=== PATIENT | female | born 1975 | race Caucasian/White ===

== ENCOUNTER → 2016-07-24 | Outpatient (CLI) | payer OTHER ==
[~2016-07-24] MED LIST: ALBU1AER9 INH; ASCO10003 PO; ATV/1 PO; CHOL1000 PO; CHOL100010 PO; CLB/200 PO; DICY10CA12 PO; DPKSR/500 PO; EFF75 PO; HYDR4TAB78 PO; IMT100 PO; LACT1CAP6 PO; LORA10CA2 PO; MAGN400T6 PO; METH10TA4 PO; MORP15TA PO; OXYC-57 PO; OXYC7.5T65 PO; PARO1TAB29 PO; PREG100C PO; PREG150C PO; PROM25TA16 PO; PRT/40 PO; SUMA6KIT2 INJ; TOPI200T14 PO; VNTHFA/IN INH; ZNF/4 PO; ZNT/150 PO; ZOLP10TA6 PO
--- NOTE | 2016-07-24 12:19 | DIAGNOSTIC IMAGING REPORT ---
THYROID ULTRASOUND CLINICAL HISTORY: Abnormal thyroid exam. Thyromegaly. COMPARISON STUDY: None. TECHNIQUE: Sonography of the thyroid gland was performed. FINDINGS: The right thyroid lobe measures 5.3 x 1.8 x 1.9 cm and the left measures 5.8 x 1.8 x 1.6 cm. The gland is mildly heterogeneous. The gland is slightly enlarged. A few hypoechoic thyroid nodules are noted, the largest of which is a 1.1 x 1.1 x 0.7 cm hypoechoic nodule within the lower pole of the left thyroid lobe. IMPRESSION: 1. Mildly enlarged, slightly heterogeneous thyroid gland. 2. Several thyroid nodules, the largest of which is a 1.1 cm left lobe nodule. None of these nodules meet criteria for biopsy. A follow-up thyroid ultrasound in one year is recommended. Electronically signed by: Torres Mayorga M.D. 07/24/2016 12:18 PM Dictated Date/Time: 07/24/2016 12:15 PM
== END | disposition home or self-care (01) ==
LOC: C.ULTR 11:37
PROVIDERS: ATTEND Internal Medicine
DX: R94.6 Abnormal results of thyroid function studies (principal); E04.1 Nontoxic single thyroid nodule

== ENCOUNTER 2016-08-08 01:58 | Emergency (ER) | payer OTHER ==
[~2016-08-08] VITALS: Ht 167.6 cm; Wt 91.0 kg
[~2016-08-08 01:58] MED LIST changes: -CHOL1000 PO; -DICY10CA12 PO; -HYDR4TAB78 PO; -LACT1CAP6 PO; -MORP15TA PO; -OXYC7.5T65 PO; -PARO1TAB29 PO; -PREG150C PO; -PRT/40 PO; -VNTHFA/IN INH
[2016-08-08 02:02] VITALS: TEMP 36.5; Ht 167.6 cm; Wt 91.0 kg
[2016-08-08] MEDS ORDERED: METOCLOPRAMIDE HCL INJ 5 MG/ML 2 ML VIAL IV STA (02:18)
[2016-08-08] MEDS ORDERED: KETOROLAC TROMETHAMINE 30 MG/ML VIAL IV STA (02:18)
[2016-08-08] MEDS ORDERED: SODIUM CHLORIDE 0.9% 1000ML 1,000 ML IV STA (02:18)
[2016-08-08] MEDS ORDERED: DiphenhydrAMINE HCL 50 MG/ML VIAL IV STA ×2 (02:18→04:03)
[2016-08-08] MEDS ORDERED: CHOL1000 PO (02:30)
[2016-08-08] MEDS ORDERED: VNTHFA/IN INH (02:30)
[2016-08-08] MEDS ORDERED: DICYCLOMINE HCL 10 MG/ML 2 ML AMP IM ONE (02:30)
[2016-08-08] MEDS ORDERED: LACT1CAP6 PO (02:32)
[2016-08-08] MEDS ORDERED: DICY10CA12 PO (02:32)
[2016-08-08] MEDS ORDERED: PRT/40 PO (02:32)
[2016-08-08] MEDS ORDERED: PARO1TAB29 PO (02:32)
[2016-08-08] MEDS ORDERED: OXYC7.5T65 PO (02:33)
[2016-08-08 02:38] LABS: BASO % 0.7 %; BASO ABS # 0.05 K/uL (0-0.2); COMPLETE YES; EOS % 3.3 %; HEMATOCRIT 35.7 % (37-47); IG% 0.1 %; LYMPH % 43.2 %; LYMPH ABS # 3.26 K/uL (1.2-3.4); MEAN CELL VOLUME 93.7 fL (80-100); MEAN CORPUSCULAR HGB CONC 34.2 g/dl (32-36); MEAN PLATELET VOLUME 9.2 fL (7.4-10.4); MONO % 4.4 %; NEUT % 48.3 %; PLATELET COUNT 280 K/uL (130-400); RED BLOOD COUNT 3.81 M/uL (4.2-5.4); WHITE BLOOD COUNT 7.55 K/uL (4.8-10.8)
--- NOTE | 2016-08-08 02:38 | EMERGENCY ROOM VISIT NOTE ---
ED Visit Note First contact with patient: 02:08 I have seen and examined this patient with Meaghan Varner and generally agree with the treatment plan as discussed. Problem List Medical Problems: (1) Acute urinary tract infection Status: Resolved (2) Anxiety disorder Status: Chronic (3) Cervical arthrodesis Status: Chronic (4) Chronic migraine Status: Chronic (5) Chronic neck and back pain Status: Chronic (6) Chronic pain syndrome Status: Chronic (7) Clostridium difficile colitis Status: Resolved (8) Community acquired pneumonia Status: Resolved (9) Depression Status: Chronic (10) DJD (degenerative joint disease) Status: Chronic (11) Fibromyalgia Status: Chronic (12) GERD (gastroesophageal reflux disease) Status: Chronic (13) IBS (irritable bowel syndrome) Status: Chronic (14) Migraine Status: Chronic (15) Osteoarthritis Status: Chronic (16) Spinal stenosis Status: Chronic Surgical Problems: (1) History of cervical spinal surgery Permanent Comment: ACDF C3 through C6 fusion Status: Resolved (2) History of section Status: Resolved (3) History of rhinoplasty Status: Resolved Current/Historical Medications Scheduled Ascorbic Acid (Vitamin C), 1,000 MG PO DAILY Cholecalciferol (Vitamin D3), 1,000 UNIT PO DAILY Dicyclomine Hcl (Dicyclomine Hcl), 10 MG PO BID Lactobacillus (Probiotic), 1 CAP PO DAILY Loratadine (Claritin), 10 MG PO DAILY Magnesium Oxide (Mag-Ox), 400 MG PO DAILY Methylphenidate (Ritalin), 10 MG PO BID Pantoprazole (Pantoprazole Sodium), 40 MG PO DAILY Paroxetine (Paxil), 40 MG PO DAILY Pregabalin (Lyrica), 100 MG PO TID Ranitidine Hcl (Zantac), 150 MG PO BID Topiramate (Topamax), 200 MG PO BID Scheduled PRN Albuterol Hfa (Ventolin Hfa), 2 PUFFS INH Q4 PRN for Wheezing Celecoxib (CeleBREX), 200 MG PO BID PRN for Pain Oxycodone/Acetaminophen 7.5MG/325MG (Percocet 7.5MG/325MG), 1 TAB PO Q6 PRN for Pain Promethazine HCl (Promethazine HCl), 25 MG PO Q6H PRN for NAUSEA Sumatriptan Succinate (Imitrex), 100 MG PO UD PRN for Migraine Sumatriptan Succinate (Imitrex Statdose), 1 DOSE INJ for Pain Tizanidine (Tizanidine HCl), 4 MG PO TID PRN for MUSCLE SPASMS Allergies Coded Allergies: No Known Allergies (Unverified , 08/08/16) Vital Signs Date Time Temp Pulse Resp B/P Pulse Ox O2 Delivery O2 Flow Rate FiO2 08/08/16 02:02 36.5 96 20 120/77 98 Room Air Laboratory Results Test 08/08/16 02:25 Medications Administered Medications (Trade) Dose Ordered Sig/Tabitha Route Start Time Stop Time Status Last Admin Dose Admin Dicyclomine HCl (Bentyl Inj) 20 mg NOW ONCE IM 08/08/16 02:30 08/08/16 02:31 DC 08/08/16 02:30 20 MG Metoclopramide HCl (Reglan Inj) 10 mg NOW STAT IV 08/08/16 02:18 08/08/16 02:20 DC 08/08/16 02:36 10 MG Diphenhydramine HCl (Benadryl Inj) 12.5 mg NOW STAT IV 08/08/16 02:18 08/08/16 02:21 DC 08/08/16 02:36 12.5 MG Ketorolac Tromethamine 30 mg 30 mg NOW STAT IV 08/08/16 02:18 08/08/16 02:21 DC 08/08/16 02:35 30 MG Sodium Chloride (Nss 1000ml) 1,000 ml @ 999 mls/hr Q1H1M STAT IV 08/08/16 02:18 08/08/16 03:18 08/08/16 02:36 999 MLS/HR Departure Information Referrals Pete Cueto M.D. (PCP) Patient Instructions My [facility]
[2016-08-08 03:01] LABS: ALT/SGPT 14 U/L (12-78); AST/SGOT 8 U/L (15-37); BLOOD UREA NITROGEN 15 mg/dl (7-18); BUN/CREATININE RATIO 14.5 (10-20); CALCIUM 7.9 mg/dl (8.5-10.1); CARBON DIOXIDE 20 mmol/L (21-32); CHLORIDE 113 mmol/L (98-107); GLUCOSE 125 mg/dl (70-99); POTASSIUM 3.3 mmol/L (3.5-5.1); SODIUM 146 mmol/L (136-145)
[2016-08-08] MEDS ORDERED: CALCIUM CARBONATE 500 MG CHEWABLE PO STA (03:05)
[2016-08-08] MEDS ORDERED: POTASSIUM CHLORIDE 10 MEQ TABCR PO STA (03:05)
[2016-08-08 03:06] LABS: ALKALINE PHOSPHATASE 64 U/L (45-117)
[2016-08-08] MEDS ORDERED: PROCHLORPERAZINE 5 MG/ML 2 ML VIAL IV STA (04:03)
[2016-08-08] MEDS ORDERED: HYDROmorphone INJ 2 MG/ML SYR/VIAL IV STA (04:53)
--- NOTE | 2016-08-08 04:54 | EMERGENCY ROOM VISIT NOTE ---
History First contact with patient: 02:08 Chief Complaint: OTHER COMPLAINT Stated Complaint: SEVERE MIGRAINE,CHEST PAINS,TROUBLE BREATHING,ABD History of Present Illness The patient is a 41 year old female who presents to the Emergency Room with complaints of headache, epigastric chest discomfort for the past few days. She suffers from migraines. She has fibromyalgia. She describes a headache as throbbing, ranging in severity currently 8 out of 10 throughout the temporal region summer to prior. Nothing makes her symptoms better or worse. She describes the chest pain as discomfort, 5 out of 10. It does not radiate. Patient denies vomiting, diarrhea, localized weakness, neck stiffness, sore throat, fever, chills, cold symptoms, urinary symptoms, recent illness. She is tolerating by mouth fluids and food. She has a history of migraines. She also has IBS. Review of Systems See HPI for pertinent positives & negatives. A total of 10 systems reviewed and were otherwise negative. Past Medical/Surgical History Medical Problems: (1) Acute urinary tract infection (2) Anxiety disorder (3) Cervical arthrodesis (4) Chronic migraine (5) Chronic neck and back pain (6) Chronic pain syndrome (7) Clostridium difficile colitis (8) Community acquired pneumonia (9) Depression (10) DJD (degenerative joint disease) (11) Fibromyalgia (12) GERD (gastroesophageal reflux disease) (13) IBS (irritable bowel syndrome) (14) Migraine (15) Osteoarthritis (16) Spinal stenosis Surgical Problems: (1) History of cervical spinal surgery (2) History of section (3) History of rhinoplasty Family History Diabetes mellitus FHx: cancer FHx: heart disease Hypertension Kidney disease Kidney stones Social History Smoking Status: Current Every Day Smoker Alcohol Use: none Drug Use: none Marital Status: Housing Status: lives with family Occupation Status: disabled, other Current/Historical Medications Scheduled Ascorbic Acid (Vitamin C), 1,000 MG PO DAILY Cholecalciferol (Vitamin D3), 1,000 UNIT PO DAILY Dicyclomine Hcl (Dicyclomine Hcl), 10 MG PO BID Lactobacillus (Probiotic), 1 CAP PO DAILY Loratadine (Claritin), 10 MG PO DAILY Magnesium Oxide (Mag-Ox), 400 MG PO DAILY Methylphenidate (Ritalin), 10 MG PO BID Pantoprazole (Pantoprazole Sodium), 40 MG PO DAILY Paroxetine (Paxil), 40 MG PO DAILY Pregabalin (Lyrica), 100 MG PO TID Ranitidine Hcl (Zantac), 150 MG PO BID Topiramate (Topamax), 200 MG PO BID Scheduled PRN Albuterol Hfa (Ventolin Hfa), 2 PUFFS INH Q4 PRN for Wheezing Celecoxib (CeleBREX), 200 MG PO BID PRN for Pain Oxycodone/Acetaminophen 7.5MG/325MG (Percocet 7.5MG/325MG), 1 TAB PO Q6 PRN for Pain Promethazine HCl (Promethazine HCl), 25 MG PO Q6H PRN for NAUSEA Sumatriptan Succinate (Imitrex), 100 MG PO UD PRN for Migraine Sumatriptan Succinate (Imitrex Statdose), 1 DOSE INJ for Pain Tizanidine (Tizanidine HCl), 4 MG PO TID PRN for MUSCLE SPASMS Allergies Coded Allergies: No Known Allergies (Unverified , 08/08/16) Physical Exam Vital Signs Date Time Temp Pulse Resp B/P Pulse Ox O2 Delivery O2 Flow Rate FiO2 08/08/16 04:05 70 08/08/16 03:47 Room Air 08/08/16 03:46 74 22 103/57 95 Room Air 08/08/16 03:33 Room Air 08/08/16 02:02 36.5 96 20 120/77 98 Room Air Physical Exam VITALS: Vitals are noted on the nurse's note and reviewed by myself. Vital signs stable. GENERAL: Pleasant female, in no acute distress, nondiaphoretic, well-developed well-nourished. SKIN: The skin was without rashes, erythema, edema, or bruising. There is no tenting of the skin. Capillary reflex less than 2 seconds. HEAD: Normocephalic atraumatic. EARS: External auditory canals clear, tympanic membranes pearly pace without erythema or effusion bilaterally. EYES: Pupils equal round and reactive to light and accommodation. Conjunctivae without injection, sclerae without icterus. Extraocular movements intact. NOSE: Patent, turbinates without inflammation or discharge. No sinus tenderness. MOUTH: Mucous membranes moist. Pharynx without erythema or exudate. Uvula midline. Airway patent. Tongue does not deviate. NECK: Supple without nuchal rigidity. No lymphadenopathy. No thyromegaly. Cervical spine is nontender. No JVD. HEART: Regular rate and rhythm without murmurs gallops or rubs. LUNGS: Clear to auscultation bilaterally without wheezes, rales or rhonchi. No dullness to percussion. No retractions or accessory muscle use. ABDOMEN: Positive bowel sounds x 4. Normal tympanic percussion. Soft, nontender, without masses or organomegaly. Sanches sign negative. No guarding or rebound tenderness. no CVA tenderness MUSCULOSKELETAL: No muscle atrophy, erythema, or edema noted. NEURO: Patient was alert and oriented to person place and time. Normal sensation to light and sharp touch. No focal neurological deficits. Cranial nerves II through XII grossly intact. No pronator drift. Cerebellar exam intact Medical Decision & Procedures Laboratory Results 08/08/16 02:25 Red Blood Count 3.81, Mean Corpuscular Volume 93.7, Mean Corpuscular Hemoglobin 32.0, Mean Corpuscular Hemoglobin Concent 34.2, Mean Platelet Volume 9.2, Neutrophils (%) (Auto) 48.3, Lymphocytes (%) (Auto) 43.2, Monocytes (%) (Auto) 4.4, Eosinophils (%) (Auto) 3.3, Basophils (%) (Auto) 0.7, Neutrophils # (Auto) 3.65, Lymphocytes # (Auto) 3.26, Monocytes # (Auto) 0.33, Eosinophils # (Auto) 0.25, Basophils # (Auto) 0.05 08/08/16 02:25 Test 08/08/16 02:25 08/08/16 04:35 White Blood Count 7.55 K/uL (4.8-10.8) Red Blood Count 3.81 M/uL (4.2-5.4) Hemoglobin 12.2 g/dL (12.0-16.0) Hematocrit 35.7 % (37-47) Mean Corpuscular Volume 93.7 fL (80-100) Mean Corpuscular Hemoglobin 32.0 pg (25-34) Mean Corpuscular Hemoglobin Concent 34.2 g/dl (32-36) Platelet Count 280 K/uL (130-400) Mean Platelet Volume 9.2 fL (7.4-10.4) Neutrophils (%) (Auto) 48.3 % Lymphocytes (%) (Auto) 43.2 % Monocytes (%) (Auto) 4.4 % Eosinophils (%) (Auto) 3.3 % Basophils (%) (Auto) 0.7 % Neutrophils # (Auto) 3.65 K/uL (1.4-6.5) Lymphocytes # (Auto) 3.26 K/uL (1.2-3.4) Monocytes # (Auto) 0.33 K/uL (0.11-0.59) Eosinophils # (Auto) 0.25 K/uL (0-0.5) Basophils # (Auto) 0.05 K/uL (0-0.2) RDW Standard Deviation 44.8 fL (36.4-46.3) RDW Coefficient of Variation 13.1 % (11.5-14.5) Immature Granulocyte % (Auto) 0.1 % Immature Granulocyte # (Auto) 0.01 K/uL (0.00-0.02) Anion Gap 13.0 mmol/L (3-11) Est Creatinine Clear Calc Drug Dose 82.4 ml/min Estimated GFR () 79.9 Estimated GFR (Non- 69.0 BUN/Creatinine Ratio 14.5 (10-20) Calcium Level 7.9 mg/dl (8.5-10.1) Total Bilirubin 0.2 mg/dl (0.2-1) Direct Bilirubin < 0.1 mg/dl (0-0.2) Aspartate Amino Transf (AST/SGOT) 8 U/L (15-37) Alanine Aminotransferase (ALT/SGPT) 14 U/L (12-78) Alkaline Phosphatase 64 U/L (45-117) Troponin I < 0.015 ng/ml (0-0.045) Total Protein 6.4 gm/dl (6.4-8.2) Albumin 3.3 gm/dl (3.4-5.0) Lipase 128 U/L (73-393) Bedside Troponin I 0.000 ng/ml (0-0.045) Medications Administered Medications (Trade) Dose Ordered Sig/Tabitha Route Start Time Stop Time Status Last Admin Dose Admin Dicyclomine HCl (Bentyl Inj) 20 mg NOW ONCE IM 08/08/16 02:30 08/08/16 02:31 DC 08/08/16 02:30 20 MG Metoclopramide HCl (Reglan Inj) 10 mg NOW STAT IV 3/8/17 02:18 08/08/16 02:20 DC 08/08/16 02:36 10 MG Diphenhydramine HCl (Benadryl Inj) 12.5 mg NOW STAT IV 08/08/16 02:18 08/08/16 02:21 DC 08/08/16 02:36 12.5 MG Ketorolac Tromethamine 30 mg 30 mg NOW STAT IV 08/08/16 02:18 08/08/16 02:21 DC 08/08/16 02:35 30 MG Sodium Chloride (Nss 1000ml) 1,000 ml @ 999 mls/hr Q1H1M STAT IV 08/08/16 02:18 08/08/16 03:18 DC 08/08/16 02:36 999 MLS/HR Potassium Chloride (Klor-Con M10) 20 meq NOW STAT PO 08/08/16 03:05 08/08/16 03:07 DC 08/08/16 03:48 20 MEQ Calcium Carbonate (Tums Chew Tab) 1,000 mg NOW STAT PO 08/08/16 03:05 08/08/16 03:07 DC 08/08/16 03:50 1,000 MG Prochlorperazine Edisylate (Compazine Inj) 10 mg NOW STAT IV 08/08/16 04:03 08/08/16 04:04 DC 08/08/16 04:19 10 MG Diphenhydramine HCl (Benadryl Inj) 12.5 mg NOW STAT IV 08/08/16 04:03 08/08/16 04:04 DC 08/08/16 04:19 12.5 MG ED Course Prior records/ancillary studies reviewed. Triage Nursing notes reviewed. The patient's history was concerning for headache and epigastric chest pain. Differential diagnosis: Etiologies such as acute intracranial bleed, CVA, postural headache, meningitis , encephalitis, mass or mass effect, sinusitis, infection, temporal arteritis, trigeminal neuralgia, pseudotumor cerebri, tension headache, cluster headache, carbon monoxide exposure, migraine, cardiac ischemia, aortic dissection, pulmonary embolism, pneumonia, pneumothorax, musculoskeletal, infections, pericarditis, myocarditis, esophageal rupture, gastrointestinal, as well as others were entertained. Physical examination: As above. ER treatment provided: Bentyl, Reglan, Benadryl, Toradol, IV fluids On reassessment the patient felt better. Diagnostic interpretation by me: The electrocardiogram was negative for pathologic change. Normal sinus, normal intervals, no acute ST or T wave changes. Impression normal sinus rhythm interpreted by myself The labs revealed 2 negative troponins 2 hours prior. Hypokalemia and this was replaced orally Imaging studies: Chest x-ray with no acute consolidation or pneumothorax interpreted by myself No acute cholecystitis per radiology Exam and history seem consistent with migraine. Patient was neurovascularly and neurologically intact. She is well-appearing. She felt much better after being medicated as above. She is advised to rest, stay well-hydrated and to follow-up with family care in a few days or here in the ER sooner for severe headache, fever, chills, neck sickness, abdominal pain, chest pain, worsening signs or symptoms or as needed.By the evaluation outlined above emergent etiologies such as cardiac ischemia, aortic dissection, pulmonary embolism, pneumonia, pneumothorax, infections, pericarditis, myocarditis, gastrointestinal , as well as others were deemed relatively unlikely. The pt informed about the findings as listed above. All questions were answered and pleased with the treatment. Return instructions were outlined and the patient was discharged in stable condition. Referral: The patient was referred back to primary care physician for follow-up in 2 to 3 days for a recheck of the current condition. Case reviewed with my attending Medical Decision As above Impression Primary Impression: Migraine Additional Impression: Hypokalemia Departure Information Dispostion Home / Self-Care Condition GOOD Referrals Pete Cueto M.D. (PCP) Patient Instructions My [facility] Additional Instructions DO NOT drive, drink alcohol, operate machinery, or perform dangerous activities today. You were given medications in the ER that can affect your ability to safely function or operate a vehicle. Rest today in a quiet, peaceful, dark environment and get a full 8-10 hrs of sleep tonight. Avoid loud noises, smoke/smoking, alcohol, bright lights, stress, or physical exertion today to minimize the chance the headache may return. Continue current medications. Ibuprofen(Motrin, Advil) may be used for fever or pain. Use 600mg every six hours as needed. Take with food. Avoid using more than 2400mg in a 24 hour period. Do not use 2400mg per day for more than three consecutive days without physician direction. Prolonged inappropriate use can lead to stomach upset or ulcers. (AND/OR) Acetaminophen(Tylenol) may be used for fever or pain. Use 1000mg every six hours as needed. Avoid using more than 3000mg in a 24 hour period. Return to the ER for passing out, worsening headache, vision problems, neck stiffness/pain, fevers, vomiting, worsening of your condition, or as needed. Follow up with your primary physician and/or a neurologist in 2-3 days for a recheck of your current condition. Problem Qualifiers Primary Impression: Migraine Migraine type: without aura Status migrainosus presence: without status migrainosus Intractability: not intractable Qualified Codes: G43.009 - Migraine without aura, not intractable, without status migrainosus
[2016-08-08] MEDS ORDERED: HYDROmorphone INJ 0.5 MG/0.5 ML SYR ONE (04:57)
[2016-08-08 05:07] VITALS: BP 106/66; PULSE 63; O2SAT 95
--- NOTE | 2016-08-08 07:30 | DIAGNOSTIC IMAGING REPORT ---
ABDOMINAL ULTRASOUND, RIGHT UPPER QUADRANT HISTORY: epigastric pain. COMPARISON: Abdominal ultrasound 05/07/2016. FINDINGS: Pancreas: The pancreatic tail is obscured by overlying bowel gas. The remaining portions of the pancreas are within normal limits. Liver: There is an 8 mm cyst. Gallbladder: Gallbladder decompressed which results in suboptimal evaluation. This likely accounts for the mild gallbladder wall thickening at 4 mm. No gallstones. CBD: 3.8 mm. Right kidney: No hydronephrosis. IMPRESSION: Gallbladder is decompressed which likely accounts for the mild gallbladder wall thickening. No gallstones. Electronically signed by: Santiago Gordon M.D. 08/08/2016 7:29 AM Dictated Date/Time: 08/08/2016 7:27 AM
--- NOTE | 2016-08-08 07:57 | DIAGNOSTIC IMAGING REPORT ---
CHEST ONE VIEW PORTABLE HISTORY: Atypical CHEST PAIN COMPARISON: Chest 05/07/2016. FINDINGS: Small linear density left lung base suggestive of scarring or subsegmental atelectasis. The lungs are otherwise clear. Cardiac silhouette is normal in size. No pleural effusions. No pneumothorax. Cervical spinal fusion hardware. IMPRESSION: No acute process. Electronically signed by: Santiago Gordon M.D. 08/08/2016 7:55 AM Dictated Date/Time: 08/08/2016 7:53 AM
== END 2016-08-08 05:24 | disposition home or self-care (01) ==
LOC: C.EDB 02:00
DX: G43.909 Migraine, unspecified, not intractable, without status migrainosus (principal); E87.6 Hypokalemia; K21.9 Gastro-esophageal reflux disease without esophagitis; F41.9 Anxiety disorder, unspecified; F32.9 Major depressive disorder, single episode, unspecified; K58.9 Irritable bowel syndrome, unspecified; M48.00 Spinal stenosis, site unspecified; M19.90 Unspecified osteoarthritis, unspecified site; G89.29 Other chronic pain; F17.200 Nicotine dependence, unspecified, uncomplicated; Z86.19 Personal history of other infectious and parasitic diseases; Z87.440 Personal history of urinary (tract) infections; Z98.1 Arthrodesis status; Z98.890 Other specified postprocedural states; Z79.899 Other long term (current) drug therapy; Z83.3 Family history of diabetes mellitus; Z80.9 Family history of malignant neoplasm, unspecified; Z82.49 Family history of ischemic heart disease and other diseases of the circulatory system; Z84.1 Family history of disorders of kidney and ureter

== ENCOUNTER → 2016-08-30 | Outpatient (CLI) | payer OTHER ==
[~2016-08-30] MED LIST changes: -ALBU1AER9 INH; -ATV/1 PO; +CHOL1000 PO; -CHOL100010 PO; +DICY10CA12 PO; -DPKSR/500 PO; -EFF75 PO; +GADAVIST IV PRN; +HYDR4TAB78 PO; +LACT1CAP6 PO; +MORP15TA PO; -OXYC-57 PO; +OXYC7.5T65 PO; +PARO1TAB29 PO; +PREG150C PO; +PRT/40 PO; +VNTHFA/IN INH; -ZOLP10TA6 PO
--- NOTE | 2016-08-30 10:45 | DIAGNOSTIC IMAGING REPORT ---
MRI OF THE BRAIN COMBO CLINICAL HISTORY: Migraine headache. Memory loss. COMPARISON STUDY: CT of the brain dated 05/19/2015. MRI of the brain dated 03/31/2015. TECHNIQUE: MRI of the brain was performed utilizing various T1 and T2-weighted sequences in the axial, sagittal, and coronal planes. Contrast-enhanced sequences were acquired following the administration of 9.5 cc of Gadavist. FINDINGS: Brain parenchyma: The brain parenchyma is normal in appearance. There is no hemorrhage or mass effect. There is no restricted diffusion to suggest acute ischemia. No enhancing mass lesion is identified on the postcontrast images. Edwards-white matter differentiation is preserved. No extra-axial fluid collection is seen. The cerebellar tonsils are normal in configuration. 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 Ventricles, sulci, and cisterns: Normal in configuration. Pituitary and sella: Unremarkable. Intracranial vasculature: Normal flow voids are maintained at the skull base. Orbits: The bony orbits are grossly intact. Orbital contents are normal in appearance. Sinuses and mastoids: There is trace mucosal thickening within the left sphenoid sinus. The remaining paranasal sinuses and the mastoid air cells are clear. Calvarium: Unremarkable. Cervical cord: Partially visualized cervical spinal cord is normal in morphology and signal intensity. IMPRESSION: No acute intracranial abnormality. Electronically signed by: Eyal Silvestre M.D. 08/30/2016 10:43 AM Dictated Date/Time: 08/30/2016 10:40 AM
== END | disposition home or self-care (01) ==
LOC: C.MRIBC 09:00
PROVIDERS: ATTEND Physician Assistant
DX: R51 Headache (principal); E34.8 Other specified endocrine disorders

== ENCOUNTER → 2016-09-24 | Outpatient (CLI) | payer OTHER ==
[~2016-09-24] MED LIST changes: -GADAVIST IV PRN; +PANT40TA2 PO; -PRT/40 PO
--- NOTE | 2016-09-24 15:42 | DIAGNOSTIC IMAGING REPORT ---
RIGHT LOWER QUADRANT ABDOMINAL WALL ULTRASOUND CLINICAL HISTORY: R10.813 Abdominal right lower quadrant tenderness COMPARISON STUDY: CT scan dated 03/29/2015 FINDINGS: Ultrasonographic evaluation of the right lower quadrant was performed. No abdominal wall hernias were visualized. No pathologic masses were evident. IMPRESSION: No ultrasonographic abnormalities. Electronically signed by: Ever Artis M.D. 09/24/2016 3:40 PM Dictated Date/Time: 09/24/2016 3:39 PM
== END | disposition home or self-care (01) ==
LOC: C.ULTR 15:05
PROVIDERS: ATTEND Surgery
DX: R10.813 Right lower quadrant abdominal tenderness (principal)

== ENCOUNTER 2016-10-30 07:05 | Emergency (ER) | payer OTHER ==
[~2016-10-30] VITALS: Ht 167.6 cm; Wt 83.0 kg
[~2016-10-30 07:05] MED LIST changes: -HYDR4TAB78 PO; -MORP15TA PO; -PREG150C PO
[2016-10-30 07:10] VITALS: TEMP 36.8; Ht 167.6 cm; Wt 83.0 kg
--- NOTE | 2016-10-30 07:20 | EMERGENCY ROOM VISIT NOTE ---
History First contact with patient: 07:12 Chief Complaint: ILLNESS Stated Complaint: HEAD, NECK, BACK SEVERE PAIN, SOB, OVERALL WEAKNES History of Present Illness The patient is a 41 year old female who presents to the Emergency Room with complaints of migraine headache and neck pain that started around 2 AM. Patient states yesterday she was feeling more tired and generally fatigued, with some vertigo type symptoms which she states often precede her migraines. She states that she took her tizanidine muscle relaxer, as well as morphine and Dilaudid, which she states "didn't touch the pain." She did not take her prescribed Imitrex or Maxalt, or any other [id number] medications for her headache. She has associated photophobia, phonophobia, nausea, but no vomiting. She denies sudden onset of her headache, and states this is similar to previous migraines in the past. She is followed by Dr. Elizalde with neurology, but states she has not seen him in a while. She states that her migraines had been previously well controlled, but have been more frequent over the past 3-4 months. She denies any fevers, chills, chest pain, syncope, one sided weakness or numbness, confusion, memory problems, slurred speech, urinary complaints. Review of Systems GENERAL: + malaise, fatigue. Denies fevers, chills, unintentional weight changes. HEENT: + dizziness, photophobia, nasal congestion. Denies visual problems, hearing loss, tinnitus. Denies difficulty swallowing or oral lesions. PULMONARY: Denies cough, shortness of breath, sputum production or hemoptysis. CARDIOVASCULAR: Denies chest pain, palpitations, dyspnea on exertion, orthopnea or peripheral edema. GASTROINTESTINAL: + Nausea. Denies diarrhea, constipation, vomiting, or abdominal pain. GENITOURINARY: Denies dysuria, frequency, urgency or nocturia. NEUROLOGIC: + chronic headaches. Denies history of epilepsy, CVA, TIA. MUSCULOSKELETAL: Denies history of joint tenderness/swelling. SKIN: Denies rashes or lesions. PSYCHIATRIC: + History of depression, fibromyalgia. ENDOCRINE: Denies history of diabetes, thyroid disorders, abnormal hair growth or sexual dysfunction. Past Medical/Surgical History Medical Problems: (1) Acute urinary tract infection (2) Anxiety disorder (3) Cervical arthrodesis (4) Chronic migraine (5) Chronic neck and back pain (6) Chronic pain syndrome (7) Clostridium difficile colitis (8) Community acquired pneumonia (9) Depression (10) DJD (degenerative joint disease) (11) Fibromyalgia (12) GERD (gastroesophageal reflux disease) (13) IBS (irritable bowel syndrome) (14) Migraine (15) Osteoarthritis (16) Spinal stenosis Surgical Problems: (1) History of cervical spinal surgery (2) History of section (3) History of rhinoplasty Family History Diabetes mellitus FHx: cancer FHx: heart disease Hypertension Kidney disease Kidney stones Social History Smoking Status: Current Every Day Smoker Alcohol Use: none Drug Use: none Marital Status: Housing Status: lives with family Occupation Status: disabled, other Current/Historical Medications Scheduled Ascorbic Acid (Vitamin C), 1,000 MG PO DAILY Cholecalciferol (Vitamin D3), 1,000 UNIT PO DAILY Dicyclomine Hcl (Dicyclomine Hcl), 10 MG PO BID Hydromorphone Hcl (Dilaudid), 4 MG PO TID Lactobacillus (Probiotic), 1 CAP PO DAILY Loratadine (Claritin), 10 MG PO DAILY Magnesium Oxide (Mag-Ox), 400 MG PO DAILY Methylphenidate (Ritalin), 10 MG PO BID Paroxetine (Paxil), 40 MG PO DAILY Pregabalin (Lyrica), 150 MG PO TID Ranitidine Hcl (Zantac), 150 MG PO BID Topiramate (Topamax), 200 MG PO BID Scheduled PRN Celecoxib (CeleBREX), 200 MG PO BID PRN for Pain Morphine Sulfate Ir (Morphine Sulfate Ir), 15 MG PO TID PRN for Pain Promethazine HCl (Promethazine HCl), 25 MG PO Q6H PRN for NAUSEA Sumatriptan Succinate (Imitrex Statdose), 1 DOSE INJ for Pain Tizanidine (Tizanidine HCl), 4 MG PO TID PRN for MUSCLE SPASMS Allergies Coded Allergies: No Known Allergies (Unverified , 10/30/16) Physical Exam Vital Signs Date Time Temp Pulse Resp B/P Pulse Ox O2 Delivery O2 Flow Rate FiO2 10/30/16 11:49 64 16 104/70 94 10/30/16 11:21 64 16 104/70 94 Room Air 10/30/16 09:53 80 18 120/70 98 Room Air 10/30/16 07:10 36.8 94 18 118/79 96 Room Air Physical Exam CONSTITUTIONAL: No acute distress, but appears uncomfortable. Well appearing and well nourished. Alert and oriented X 4 with normal affect. HEENT: Normocephalic, atraumatic. Pupils equal, round and reactive to light, EOMI. Photophobic. TMs normal. Pharynx normal. Dry mucus membranes. NECK: Supple, full active range of motion without discomfort. Bilateral tenderness of the neck and shoulder muscles with palpation RESPIRATORY: Clear to auscultation bilaterally with no wheezing, crackles, rhonchi or stridor. Equal expansion bilaterally. CARDIOVASCULAR: Regular rate and rhythm with no murmurs, rubs or gallops. Normal peripheral perfusion. No edema. GASTROINTESTINAL: Soft, nontender, nondistended. Bowel sounds present in all quadrants. MUSCULOSKELETAL: Full range of motion of all joints without discomfort. INTEGUMENTARY: No rash or other significant dermatologic conditions noted. NEUROLOGIC: Cranial nerves II-XII grossly intact. No focal neurologic deficits noted. Normal strength, normal sensation, normal gait, normal reflexes, normal coordination. Medical Decision & Procedures Laboratory Results 10/30/16 08:00 Red Blood Count 4.35, Mean Corpuscular Volume 88.0, Mean Corpuscular Hemoglobin 29.4, Mean Corpuscular Hemoglobin Concent 33.4, Mean Platelet Volume 8.8, Neutrophils (%) (Auto) 57.2, Lymphocytes (%) (Auto) 29.7, Monocytes (%) (Auto) 9.9, Eosinophils (%) (Auto) 2.5, Basophils (%) (Auto) 0.6, Neutrophils # (Auto) 4.61, Lymphocytes # (Auto) 2.39, Monocytes # (Auto) 0.80, Eosinophils # (Auto) 0.20, Basophils # (Auto) 0.05 10/30/16 08:00 Test 10/30/16 07:32 10/30/16 08:00 Bedside Urine Test NEG (NEG) White Blood Count 8.06 K/uL (4.8-10.8) Red Blood Count 4.35 M/uL (4.2-5.4) Hemoglobin 12.8 g/dL (12.0-16.0) Hematocrit 38.3 % (37-47) Mean Corpuscular Volume 88.0 fL (80-100) Mean Corpuscular Hemoglobin 29.4 pg (25-34) Mean Corpuscular Hemoglobin Concent 33.4 g/dl (32-36) Platelet Count 335 K/uL (130-400) Mean Platelet Volume 8.8 fL (7.4-10.4) Neutrophils (%) (Auto) 57.2 % Lymphocytes (%) (Auto) 29.7 % Monocytes (%) (Auto) 9.9 % Eosinophils (%) (Auto) 2.5 % Basophils (%) (Auto) 0.6 % Neutrophils # (Auto) 4.61 K/uL (1.4-6.5) Lymphocytes # (Auto) 2.39 K/uL (1.2-3.4) Monocytes # (Auto) 0.80 K/uL (0.11-0.59) Eosinophils # (Auto) 0.20 K/uL (0-0.5) Basophils # (Auto) 0.05 K/uL (0-0.2) RDW Standard Deviation 41.7 fL (36.4-46.3) RDW Coefficient of Variation 12.9 % (11.5-14.5) Immature Granulocyte % (Auto) 0.1 % Immature Granulocyte # (Auto) 0.01 K/uL (0.00-0.02) Anion Gap 8.0 mmol/L (3-11) Est Creatinine Clear Calc Drug Dose 83.8 ml/min Estimated GFR () 86.1 Estimated GFR (Non- 74.3 BUN/Creatinine Ratio 12.1 (10-20) Calcium Level 9.1 mg/dl (8.5-10.1) Medications Administered Medications (Trade) Dose Ordered Sig/Tabitha Route Start Time Stop Time Status Last Admin Dose Admin Sodium Chloride (Nss 1000ml) 1,000 ml @ 999 mls/hr Q1H1M STAT IV 10/30/16 07:32 10/30/16 08:32 DC 10/30/16 08:23 999 MLS/HR Ketorolac Tromethamine (Toradol Inj) 15 mg NOW STAT IV 10/30/16 07:32 10/30/16 07:39 DC 10/30/16 08:22 15 MG Prochlorperazine Edisylate (Compazine Inj) 10 mg NOW STAT IV 10/30/16 07:32 5/30/17 07:39 DC 10/30/16 08:21 10 MG Potassium Chloride (Klor-Con M10) 40 meq NOW STAT PO 10/30/16 08:40 10/30/16 08:42 DC 10/30/16 09:51 40 MEQ Sumatriptan Succinate (Imitrex Sq Inj) 6 mg NOW STAT SQ 10/30/16 10:16 10/30/16 10:17 DC 10/30/16 10:40 6 MG Medical Decision CC: Patient presenting with complaint of migraine Interpretation of Labs: No leukocytosis, no anemia, mild hypokalemia, no other significant electrolyte abnormalities, renal function. Differential Diagnosis: Includes, but not limited to migraine, tension headache , sinusitis, musculoskeletal pain, dehydration, most likely intracranial hemorrhage or infection. Summary: Patient was evaluated at bedside, history of physical exam performed. She is alert and no acute distress, but does appear uncomfortable. She is photophobic on exam. Neurologic exam is fully intact with no focal deficits. She does appear moderately dehydrated. She states that this headache is similar to previous migraines and she has been having increased frequency of her migraines for past few months. Orders were placed at bedside for labs, urine , IV fluids and migraine cocktail to treat for migraine headache. Patient discussed with Dr. Monterroso, who agrees with my assessment and plan. Labs reviewed, mild hypokalemia noted which was replaced orally, no other significant abnormalities. Patient reassessed multiple times throughout ED stay, she is somewhat improved after IV fluids and migraine cocktail and her nausea is resolved. She is still complaining of 7/10 headache and requested her Imitrex, which was given to her. Her headache continues to improve after Imitrex. I do have some concern that patient is taking multiple narcotics she does not appear to be currently prescribed, including morphine and Dilaudid. This was discussed with the patient, she stated she "had some left over." I stressed with the patient the importance of only taking medications that are prescribed to her, and that narcotics are not ideal for treating migraines. Patient was discharged home in stable condition, she was instructed to follow closely with her neurologist, she verbalized understanding. Impression Primary Impression: Migraine Additional Impression: Hypokalemia Departure Information Dispostion Home / Self-Care Condition GOOD Referrals No Doctor, Assigned (PCP) Patient Instructions ED Headache Migraine, Hypokalemia Dc, [facility] Additional Instructions Call your neurologist today to schedule a follow-up appointment to discuss management of your frequent migraines. Take your prescribed imitrex or maxalt at the first sign of a migraine to help stop progression of the headache. For pain control, you can use the following [id number] medicines (if >12 yo): - Regular strength (325mg/tab) Tylenol (acetaminophen) 2 tabs every 4-6 hours as needed. Do not exceed 10 tablets in a 24 hour period. Avoid taking more than 3 grams (3000 mg) of Tylenol per day. This includes any other sources of acetaminophen you may take on a regular basis. - Regular strength (200 mg/tab) Advil (ibuprofen) 1-2 tabs every 4-6 hours as needed. Do not exceed a dose of 3200 mg per day. You should relax in a quiet, dark place for the rest of the day. Avoid any possible triggers including: cigarette smoke, caffeine, nicotine, chocolate, wine, beer, loud noises or music, or bright lights. You should schedule a follow-up appointment in 2-3 days with your Primary Care Provider or established Neurologist for further evaluation and treatment of your Headache. Return to the Emergency Department if your current symptoms worsen despite treatment course outlined above, or if you develop any of the following symptoms : intractable pain despite above treatment course, visual changes, loss of vision, one-sided weakness or facial drooping, slurring of speech, loss of coordination, or loss of consciousness. Problem Qualifiers
[2016-10-30] MEDS ORDERED: HYDR4TAB78 PO (07:32)
[2016-10-30] MEDS ORDERED: KETOROLAC TROMETHAMINE 30 MG/ML VIAL IV STA (07:32)
[2016-10-30] MEDS ORDERED: PROCHLORPERAZINE 5 MG/ML 2 ML VIAL IV STA (07:32)
[2016-10-30] MEDS ORDERED: PREG150C PO (07:32)
[2016-10-30] MEDS ORDERED: MORP15TA PO (07:32)
[2016-10-30] MEDS ORDERED: SODIUM CHLORIDE 0.9% 1000ML 1,000 ML IV STA (07:32)
[2016-10-30 08:15] LABS: BASO % 0.6 %; BASO ABS # 0.05 K/uL (0-0.2); COMPLETE YES; EOS % 2.5 %; HEMATOCRIT 38.3 % (37-47); IG% 0.1 %; LYMPH % 29.7 %; LYMPH ABS # 2.39 K/uL (1.2-3.4); MEAN CORPUSCULAR HEMOGLOBIN 29.4 pg (25-34); MEAN CORPUSCULAR HGB CONC 33.4 g/dl (32-36); MEAN PLATELET VOLUME 8.8 fL (7.4-10.4); MONO % 9.9 %; NEUT % 57.2 %; PLATELET COUNT 335 K/uL (130-400); RED BLOOD COUNT 4.35 M/uL (4.2-5.4); WHITE BLOOD COUNT 8.06 K/uL (4.8-10.8)
[2016-10-30 08:31] LABS: BUN/CREATININE RATIO 12.1 (10-20); CREATININE 0.94 mg/dl (0.60-1.20); POTASSIUM 3.2 mmol/L (3.5-5.1)
[2016-10-30 08:38] LABS: CALCIUM 9.1 mg/dl (8.5-10.1)
[2016-10-30] MEDS ORDERED: POTASSIUM CHLORIDE 10 MEQ TABCR PO STA (08:40)
[2016-10-30] MEDS ORDERED: PROCHLORPERAZINE INJ 10 MG in SYRINGE 8 ML IV SCH (09:00)
[2016-10-30] MEDS ORDERED: SUMATRIPTAN SUCCINATE 6 MG/0.5 ML VIAL SQ STA (10:16)
[2016-10-30 11:49] VITALS: BP 104/70; PULSE 64; O2SAT 94
== END 2016-10-30 11:49 | disposition home or self-care (01) ==
LOC: C.EDB 07:07 → C.EDA 11:49
DX: G43.909 Migraine, unspecified, not intractable, without status migrainosus (principal); E87.6 Hypokalemia; K21.9 Gastro-esophageal reflux disease without esophagitis; F41.9 Anxiety disorder, unspecified; K58.9 Irritable bowel syndrome, unspecified; F32.9 Major depressive disorder, single episode, unspecified; M19.90 Unspecified osteoarthritis, unspecified site; G89.29 Other chronic pain; F17.200 Nicotine dependence, unspecified, uncomplicated; Z86.19 Personal history of other infectious and parasitic diseases; Z98.890 Other specified postprocedural states; Z79.899 Other long term (current) drug therapy; Z83.3 Family history of diabetes mellitus; Z80.9 Family history of malignant neoplasm, unspecified; Z82.49 Family history of ischemic heart disease and other diseases of the circulatory system; Z84.1 Family history of disorders of kidney and ureter

== ENCOUNTER → 2017-05-07 | Outpatient (CLI) | payer OTHER ==
[~2017-05-07] MED LIST changes: +HYDR4TAB78 PO; -IMT100 PO; +MORP15TA PO; -OXYC7.5T65 PO; -PANT40TA2 PO; -PREG100C PO; +PREG150C PO; -VNTHFA/IN INH
[2017-05-07 17:32] LABS: BASO % 0.3 %; BASO ABS # 0.04 K/uL (0-0.2); COMPLETE YES; EOS % 1.2 %; IG% 0.1 %; LYMPH % 13.8 %; LYMPH ABS # 1.88 K/uL (1.2-3.4); MEAN CELL VOLUME 93.1 fL (80-100); MEAN CORPUSCULAR HEMOGLOBIN 30.6 pg (25-34); MEAN CORPUSCULAR HGB CONC 32.9 g/dl (32-36); MONO % 7.3 %; NEUT % 77.3 %; PLATELET COUNT 310 K/uL (130-400); RED BLOOD COUNT 4.08 M/uL (4.2-5.4); WHITE BLOOD COUNT 13.61 K/uL (4.8-10.8)
[2017-05-07 17:34] LABS: URINE APPEARANCE CLEAR (CLEAR); URINE BILIRUBIN NEG (NEG); URINE COLOR DK YELLOW; URINE EPITHELIAL CELL AUTO 20-30 /lpf (0-5); URINE NITRITE POS (NEG); URINE PH 7.5 (4.5-7.5); URINE SPECIFIC GRAVITY 1.014 (1.000-1.030); UROBILINOGEN NEG (NEG)
[2017-05-07 17:44] LABS: MANUAL MICROSCOPIC REQUIRED? NO; REVIEW REQ? NO
[2017-05-07 17:49] LABS: ALT/SGPT 16 U/L (12-78); AST/SGOT 8 U/L (15-37); BLOOD UREA NITROGEN 13 mg/dl (7-18); BUN/CREATININE RATIO 14.5 (10-20); CARBON DIOXIDE 24 mmol/L (21-32); CHLORIDE 106 mmol/L (98-107); CREATININE 0.88 mg/dl (0.60-1.20); GLUCOSE 84 mg/dl (70-99); POTASSIUM 3.8 mmol/L (3.5-5.1); SODIUM 136 mmol/L (136-145)
[2017-05-07 17:51] LABS: ALB/GLOB RATIO 0.9 (0.9-2); ALKALINE PHOSPHATASE 89 U/L (45-117)
== END | disposition home or self-care (01) ==
LOC: C.LABBFT 15:15
PROVIDERS: ATTEND Physician Assistant Medical
DX: R39.9 Unspecified symptoms and signs involving the genitourinary system (principal); G43.009 Migraine without aura, not intractable, without status migrainosus; E55.9 Vitamin D deficiency, unspecified

== ENCOUNTER 2017-06-06 12:21 | Emergency (ER) | payer OTHER ==
[~2017-06-06] VITALS: Ht 167.6 cm; Wt 85.0 kg
[2017-06-06 12:26] VITALS: Ht 167.6 cm; Wt 85.0 kg
[2017-06-06] MEDS ORDERED: PROCHLORPERAZINE 5 MG/ML 2 ML VIAL IV STA (12:45)
[2017-06-06] MEDS ORDERED: KETOROLAC TROMETHAMINE 30 MG/ML VIAL IV STA (12:45)
[2017-06-06] MEDS ORDERED: DiphenhydrAMINE HCL 50 MG/ML VIAL IV STA (12:45)
[2017-06-06] MEDS ORDERED: DEXAMETHASONE SOD INJ 4 MG/ML VIAL IV STA (12:45)
[2017-06-06 13:22] LABS: HEMATOCRIT 37.7 % (37-47); HEMOGLOBIN 12.8 g/dL (12.0-16.0); MEAN CELL VOLUME 90.4 fL (80-100); MEAN CORPUSCULAR HEMOGLOBIN 30.7 pg (25-34); MEAN PLATELET VOLUME 8.8 fL (7.4-10.4); PLATELET COUNT 346 K/uL (130-400); RED CELL DISTRIBUTION WIDTH CV 13.7 % (11.5-14.5); RED CELL DISTRIBUTION WIDTH SD 45.1 fL (36.4-46.3); WHITE BLOOD COUNT 19.14 K/uL (4.8-10.8)
[2017-06-06 13:39] LABS: CALCIUM 9.2 mg/dl (8.5-10.1); CREATININE 0.84 mg/dl (0.60-1.20); POTASSIUM 3.9 mmol/L (3.5-5.1)
--- NOTE | 2017-06-06 13:39 | DIAGNOSTIC IMAGING REPORT ---
CT SCAN OF THE BRAIN WITHOUT IV CONTRAST CLINICAL HISTORY: Headache. COMPARISON STUDY: CT of the brain dated 05/19/2015. TECHNIQUE: Unenhanced axial CT scan of the brain is performed from the vertex to the skull base. A dose lowering technique was utilized adhering to the principles of ALARA. CT DOSE: 638.56 mGycm FINDINGS: Brain parenchyma: The brain parenchyma is normal in appearance. There is no hemorrhage, mass effect, or evidence of acute territorial ischemia by CT criteria. Edwards-white matter is preserved. No extra-axial fluid collection is seen. Ventricles, sulci, cisterns: Normal in configuration. Intracranial vasculature: The visualized intracranial vasculature at the skull base is normal in appearance. Calvarium: Unremarkable. Sinuses and mastoids: The visualized paranasal sinuses are clear. The mastoid air cells are well pneumatized. Orbits: The bony orbits are grossly intact. IMPRESSION: No acute intracranial abnormality. Electronically signed by: Eyal Silvestre M.D. 06/06/2017 1:38 PM Dictated Date/Time: 06/06/2017 1:36 PM
[2017-06-06 13:43] VITALS: TEMP 36.6
--- NOTE | 2017-06-06 14:16 | EMERGENCY ROOM VISIT NOTE ---
History Report prepared by Carolina: Milvia Galicia Under the Supervision of: Dr. Lonny Jon D.O. First contact with patient: 12:36 Chief Complaint: HEADACHE Stated Complaint: SEVERE MIGRAINE,NAUSEA,NECK/BACK PAIN,DIZZINESS History of Present Illness The patient is a 41 year old female who presents to the Emergency Room with complaints of persistent headache. The patient was seen in the past for migraines. She reports a history of migraines and states that she has had a migraine headache since just before . She states that it started like a normal migraine and then changed over the past 4-5 days. She currently rates her pain a 10/10 in severity. She notes associated lightheadedness, dizziness, nausea, and mild facial numbness. She states that she spoke with her neurologist yesterday and was prescribed prednisone. She took 60 mg of prednisone yesterday and 40 mg prednisone today. The patient also reports being on Dilaudid 4 times a day for the symptoms. Based on the patient's previous evaluation, she was taking Dilaudid at that time and it apparently was not prescribed. The patient also has tried her Topamax, Imitrex, Maxalt and magnesium. She takes these regularly in addition to promethazine. Source of History: patient Position: head Symptom Intensity: 10/10 Quality: ache Timing: other (persistent) Associated Symptoms: + nausea, + numbness (facial ) Note: She notes associated lightheadedness and dizziness. Review of Systems See HPI for pertinent positives & negatives. A total of 10 systems reviewed and were otherwise negative. Past Medical & Surgical Medical Problems: (1) Acute urinary tract infection (2) Anxiety disorder (3) Cervical arthrodesis (4) Chronic migraine (5) Chronic neck and back pain (6) Chronic pain syndrome (7) Clostridium difficile colitis (8) Community acquired pneumonia (9) Depression (10) DJD (degenerative joint disease) (11) Fibromyalgia (12) GERD (gastroesophageal reflux disease) (13) IBS (irritable bowel syndrome) (14) Migraine (15) Osteoarthritis (16) Spinal stenosis Surgical Problems: (1) History of cervical spinal surgery (2) History of section (3) History of rhinoplasty Family History Diabetes mellitus FHx: cancer FHx: heart disease Hypertension Kidney disease Kidney stones Social History Smoking Status: Former Smoker Alcohol Use: none Drug Use: none Marital Status: Housing Status: lives with family Occupation Status: disabled, other Current/Historical Medications Scheduled Ascorbic Acid (Vitamin C), 1,000 MG PO DAILY Cholecalciferol (Vitamin D3), 1,000 UNIT PO DAILY Dicyclomine Hcl (Dicyclomine Hcl), 10 MG PO BID Hydromorphone Hcl (Dilaudid), 4 MG PO TID Lactobacillus (Probiotic), 1 CAP PO DAILY Loratadine (Claritin), 10 MG PO DAILY Magnesium Oxide (Mag-Ox), 400 MG PO DAILY Methylphenidate (Ritalin), 10 MG PO BID Paroxetine (Paxil), 40 MG PO DAILY Pregabalin (Lyrica), 150 MG PO TID Ranitidine Hcl (Zantac), 150 MG PO BID Topiramate (Topamax), 200 MG PO BID Scheduled PRN Celecoxib (CeleBREX), 200 MG PO BID PRN for Pain Morphine Sulfate Ir (Morphine Sulfate Ir), 15 MG PO TID PRN for Pain Promethazine HCl (Promethazine HCl), 25 MG PO Q6H PRN for NAUSEA Sumatriptan Succinate (Imitrex Statdose), 1 DOSE INJ for Pain Tizanidine (Tizanidine HCl), 4 MG PO TID PRN for MUSCLE SPASMS Allergies Coded Allergies: No Known Allergies (Unverified , 10/30/16) Physical Exam Vital Signs Date Time Temp Pulse Resp B/P (MAP) Pulse Ox O2 Delivery O2 Flow Rate FiO2 06/06/17 13:43 36.6 88 18 106/56 95 Room Air 06/06/17 12:26 36.5 111 18 138/71 94 Room Air Physical Exam CONSTITUTIONAL/VITAL SIGNS: Reviewed / noted above. GENERAL: Non-toxic in appearance. INTEGUMENTARY: Warm, dry, and Corinne. HEAD: Normocephalic. EYES: without scleral icterus or trauma. ENT/OROPHARYNX: clear and moist. LYMPHADENOPATHY/NECK: Is supple without lymphadenopathy or meningismus. RESPIRATORY: Lungs clear and equal. CARDIOVASCULAR: Regular rate and rhythm. GI/ABDOMEN: Soft and nontender. No organomegaly or pulsatile mass. No rebound or guarding. Normal bowel sounds. EXTREMITIES: Warm and well perfused. BACK: No CVA tenderness. NEUROLOGICAL: Intact without focal deficits. PSYCHIATRIC: normal affect. MUSCULOSKELETAL: Normally developed with good muscle tone. Medical Decision & Procedures ER Provider Diagnostic Interpretation: Radiology results as stated below per my review and radiologist interpretation: CT SCAN OF THE BRAIN WITHOUT IV CONTRAST CLINICAL HISTORY: Headache. COMPARISON STUDY: CT of the brain dated 05/19/2015. TECHNIQUE: Unenhanced axial CT scan of the brain is performed from the vertex to the skull base. A dose lowering technique was utilized adhering to the principles of ALARA. CT DOSE: 638.56 mGycm FINDINGS: Brain parenchyma: The brain parenchyma is normal in appearance. There is no hemorrhage, mass effect, or evidence of acute territorial ischemia by CT criteria. Edwards-white matter is preserved. No extra-axial fluid collection is seen. Ventricles, sulci, cisterns: Normal in configuration. Intracranial vasculature: The visualized intracranial vasculature at the skull base is normal in appearance. Calvarium: Unremarkable. Sinuses and mastoids: The visualized paranasal sinuses are clear. The mastoid air cells are well pneumatized. Orbits: The bony orbits are grossly intact. IMPRESSION: No acute intracranial abnormality. Electronically signed by: Eyal Silvestre M.D. 06/06/2017 1:38 PM Dictated Date/Time: 06/06/2017 1:36 PM Laboratory Results 06/06/17 13:10 06/06/17 13:10 Test 06/06/17 13:10 Red Blood Count 4.17 M/uL (4.2-5.4) Mean Corpuscular Volume 90.4 fL (80-100) Mean Corpuscular Hemoglobin 30.7 pg (25-34) Mean Corpuscular Hemoglobin Concent 34.0 g/dl (32-36) RDW Standard Deviation 45.1 fL (36.4-46.3) RDW Coefficient of Variation 13.7 % (11.5-14.5) Mean Platelet Volume 8.8 fL (7.4-10.4) Erythrocyte Sedimentation Rate 17 mm/hr (0-21) Anion Gap 7.0 mmol/L (3-11) Est Creatinine Clear Calc Drug Dose 94.8 ml/min Estimated GFR () 98.7 Estimated GFR (Non- 85.1 BUN/Creatinine Ratio 16.2 (10-20) Calcium Level 9.2 mg/dl (8.5-10.1) Laboratory results as stated above per my review. Medications Administered Medications (Trade) Dose Ordered Sig/Tabitha Route Start Time Stop Time Status Last Admin Dose Admin Ketorolac Tromethamine (Toradol Inj) 30 mg NOW STAT IV 06/06/17 12:45 06/06/17 12:49 DC 06/06/17 13:39 30 MG Diphenhydramine HCl (Benadryl Inj) 25 mg NOW STAT IV 06/06/17 12:45 06/06/17 12:49 DC 06/06/17 13:39 25 MG Prochlorperazine Edisylate (Compazine Inj) 10 mg NOW STAT IV 06/06/17 12:45 06/06/17 12:49 DC 06/06/17 13:38 10 MG Dexamethasone Sodium Phosphate (Decadron Inj) 8 mg NOW STAT IV 06/06/17 12:45 06/06/17 12:49 DC 06/06/17 13:39 8 MG ED Course 1240: Previous medical records were reviewed. The patient was evaluated in room B9. A complete history and physical examination was performed. 1245: Ordered Decadron 8 mg IV, Compazine 10 mg IV, Benadryl 25 mg IV, and Toradol 30 mg IV 1400: I reassessed the patient at this time. She is feeling better and resting comfortably. I discussed the results and treatment plan with the patient. I answered all pertaining questions that she had. She expressed understanding and verbalized agreement. The patient will be discharged home. Medical Decision Prior records/ancillary studies reviewed. Triage Nursing notes reviewed. The patient's history was concerning for headache. Differential diagnosis: Etiologies such as migraine headache, meningitis, sinusitis, CO exposure, ICH, SAH, infection, tumor, headache, sinus thrombosis, arterial dissection, as well as others were entertained. The patient is a 41 year old female who presents to the Emergency Room with complaints of a headache. The patient was seen in the past for migraines. She reports a history of migraines and states that she has had a migraine headache since just before Patricio. She states that it started like a normal migraine and them change manager the past 4-5 days. She states that she has some associated lightheadedness and dizziness as well as nausea. She states that she talk to her neurologist yesterday and was started on prednisone. She took 60 mg of prednisone yesterday and 40 mg prednisone today. The patient also reports being on Dilaudid 4 times a day for the symptoms. Based on the patient' s previous evaluation, she was taking Dilaudid at that time and it apparently was not prescribed. The patient also has tried her Topamax, Imitrex, Maxalt and magnesium. She takes these regularly in addition to promethazine. The patient's physical exam reveals a 41-year-old female in no acute distress. She does not appear uncomfortable and is on her ipad. The patient denies any trauma or recent illness. She is not having fevers. Her physical exam was normal. Vital signs are stable. CT scan of the brain did not show acute process. White blood cell count was 19,000. This is likely related to her recent steroid use. She panel was unremarkable. The patient was treated with IV Toradol, IV Decadron, IV Compazine and IV Benadryl. The patient's symptoms were slightly improved. She was felt to be stable for discharge and outpatient follow-up. Medication Reconcilliation Current Medication List: was personally reviewed by me Blood Pressure Screening Patient's blood pressure: Normal blood pressure Impression Primary Impression: Headache Scribe Attestation The scribe's documentation has been prepared under my direction and personally reviewed by me in its entirety. I confirm that the note above accurately reflects all work, treatment, procedures, and medical decision making performed by me. Departure Information Dispostion Home / Self-Care Referrals Pete Cueto M.D. (PCP) Forms HOME CARE DOCUMENTATION FORM, IMPORTANT VISIT INFORMATION Patient Instructions My [facility] Additional Instructions Follow-up with your doctor for further care and evaluation in 1-2 days. Return to the emergency department for worsening or new symptoms or any concerns. You have been examined and treated today on an emergency basis only. This is not a substitute for, or an effort to provide, complete comprehensive medical care. It is impossible to recognize and treat all injuries or illnesses in a single emergency department visit. It is therefore important that you follow up closely with your doctor. Call as soon as possible for an appointment.
[2017-06-06 15:13] VITALS: BP 113/56; PULSE 80; O2SAT 95
== END 2017-06-06 15:13 | disposition home or self-care (01) ==
LOC: C.EDB 12:23
DX: R51 Headache (principal); R42 Dizziness and giddiness; R11.0 Nausea; R20.0 Anesthesia of skin; F41.9 Anxiety disorder, unspecified; F32.9 Major depressive disorder, single episode, unspecified; M79.7 Fibromyalgia; K21.9 Gastro-esophageal reflux disease without esophagitis; K58.9 Irritable bowel syndrome, unspecified; M48.00 Spinal stenosis, site unspecified; Z87.891 Personal history of nicotine dependence; Z83.3 Family history of diabetes mellitus; Z80.9 Family history of malignant neoplasm, unspecified; Z82.49 Family history of ischemic heart disease and other diseases of the circulatory system; Z84.1 Family history of disorders of kidney and ureter

== ENCOUNTER → 2017-06-07 | Outpatient (CLI) | payer OTHER ==
[~2017-06-07] MED LIST changes: +POTA99TA PO; +PRED10TA PO; +RIZA10TA18 PO
[2017-06-07 16:41] LABS: BASO % 0.1 %; BASO ABS # 0.02 K/uL (0-0.2); HEMATOCRIT 37.9 % (37-47); HEMOGLOBIN 12.7 g/dL (12.0-16.0); IG# 0.25 K/uL (0.00-0.02); LYMPH % 9.1 %; LYMPH ABS # 1.96 K/uL (1.2-3.4); MEAN CELL VOLUME 91.1 fL (80-100); MEAN CORPUSCULAR HEMOGLOBIN 30.5 pg (25-34); MEAN CORPUSCULAR HGB CONC 33.5 g/dl (32-36); MEAN PLATELET VOLUME 8.9 fL (7.4-10.4); MONO % 3.8 %; MONO ABS # 0.81 K/uL (0.11-0.59); NEUT % 85.8 %; NEUT ABS # 18.45 K/uL (1.4-6.5); PLATELET COUNT 382 K/uL (130-400); RED CELL DISTRIBUTION WIDTH CV 14.1 % (11.5-14.5); RED CELL DISTRIBUTION WIDTH SD 46.6 fL (36.4-46.3); WHITE BLOOD COUNT 21.49 K/uL (4.8-10.8)
[2017-06-07 19:22] LABS: ALBUMIN 3.7 gm/dl (3.4-5.0); AST/SGOT 5 U/L (15-37); BLOOD UREA NITROGEN 19 mg/dl (7-18); CALCIUM 8.7 mg/dl (8.5-10.1); CARBON DIOXIDE 24 mmol/L (21-32); CREATININE 0.98 mg/dl (0.60-1.20); GLUCOSE 99 mg/dl (70-99); SODIUM 140 mmol/L (136-145); TOTAL PROTEIN 7.5 gm/dl (6.4-8.2)
[2017-06-07 19:43] LABS: ALKALINE PHOSPHATASE 77 U/L (45-117); ALT/SGPT 17 U/L (12-78)
== END | disposition home or self-care (01) ==
LOC: C.LABBC 15:18
PROVIDERS: ATTEND Physician Assistant
DX: G43.009 Migraine without aura, not intractable, without status migrainosus (principal)

== ENCOUNTER 2017-06-09 17:13 | Emergency (ER) | payer OTHER ==
[~2017-06-09] VITALS: Ht 170.2 cm; Wt 89.9 kg
[~2017-06-09 17:13] MED LIST changes: -POTA99TA PO; -PRED10TA PO; -RIZA10TA18 PO
[2017-06-09 17:22] VITALS: TEMP 36.6; Ht 170.2 cm; Wt 89.9 kg
[2017-06-09] MEDS ORDERED: POTA99TA PO (17:51)
[2017-06-09] MEDS ORDERED: RIZA10TA18 PO (17:51)
[2017-06-09] MEDS ORDERED: PRED10TA PO (17:51)
[2017-06-09] MEDS ORDERED: HYDROmorphone INJ 1 MG/ML SYR IV STA (17:55)
[2017-06-09] MEDS ORDERED: ONDANSETRON INJ 2 MG/ML 2 ML VIAL IV STA (17:55)
[2017-06-09] MEDS ORDERED: ACETAMINOPHEN 500 MG TAB PO STA (17:55)
--- NOTE | 2017-06-09 18:15 | EMERGENCY ROOM VISIT NOTE ---
History Report prepared by [place]: Michael Garcia Under the Supervision of: Dr. Thien Sen M.D. First contact with patient: 17:27 Chief Complaint: PAIN (GENERALIZED) Stated Complaint: SEVERE NECK PAIN/HEAD/BACK, TIGHTNESS CHEST History of Present Illness The patient is a 41 year old white female with a past medical history of UTI, anxiety, cervical arthrodesis, migraines, depression, DJD, fibromyalgia, GERD, IBS, osteoarthritis, spinal stenosis, c-spine surgery, , rhinoplasty who presents to the ED with a cc of worsening neck and back pain beginning three days ago. Pt was here a few days ago for a migraine and followed up with her neurologist. Positive chest tightness, shortness of breath, facial numbness , nausea, vomiting. Negative recent trauma, recent strain, history of blood clots in her legs or lungs, recent travel, taking control. Pt stopped smoking 3 weeks ago. She states she is on Dilaudid four times a day for pain, but she stopped taking it because she thought it was causing her symptoms. Source of History: patient Onset: three days ago Position: neck, back Timing: worsening Associated Symptoms: + SOB, + nausea, + vomiting, + numbness (facial) Note: Associated symptoms: chest tightness Denies: recent travel, recent trauma, taking control, history of blood clots in lungs or legs Review of Systems See HPI for pertinent positives and negatives. A total of ten systems were reviewed and were otherwise negative. Past Medical & Surgical Medical Problems: (1) Acute urinary tract infection (2) Anxiety disorder (3) Cervical arthrodesis (4) Chronic migraine (5) Chronic neck and back pain (6) Chronic pain syndrome (7) Clostridium difficile colitis (8) Community acquired pneumonia (9) Depression (10) DJD (degenerative joint disease) (11) Fibromyalgia (12) GERD (gastroesophageal reflux disease) (13) IBS (irritable bowel syndrome) (14) Migraine (15) Osteoarthritis (16) Spinal stenosis Surgical Problems: (1) History of cervical spinal surgery (2) History of section (3) History of rhinoplasty Family History Diabetes mellitus FHx: cancer FHx: heart disease Hypertension Kidney disease Kidney stones Social History Smoking Status: Former Smoker Alcohol Use: none Drug Use: none Marital Status: Housing Status: lives with family Occupation Status: disabled, other Current/Historical Medications Scheduled Ascorbic Acid (Vitamin C), 1,000 MG PO DAILY Cholecalciferol (Vitamin D3), 1,000 UNIT PO DAILY Dicyclomine Hcl (Dicyclomine Hcl), 10 MG PO BID Hydromorphone Hcl (Dilaudid), 4 MG PO QID Lactobacillus (Probiotic), 1 CAP PO DAILY Loratadine (Claritin), 10 MG PO DAILY Magnesium Oxide (Mag-Ox), 400 MG PO DAILY Methylphenidate (Ritalin), 10 MG PO BID Paroxetine (Paxil), 40 MG PO DAILY Potassium (Potassium), Unknown Dose PO DAILY Prednisone (Prednisone), Unknown Dose PO UD Pregabalin (Lyrica), 150 MG PO TID Ranitidine Hcl (Zantac), 150 MG PO BID Topiramate (Topamax), 200 MG PO BID Scheduled PRN Celecoxib (CeleBREX), 200 MG PO BID PRN for Pain Promethazine HCl (Promethazine HCl), 25 MG PO Q6H PRN for NAUSEA Rizatriptan Benzoate (Maxalt), 10 MG PO DIRECTED PRN for Migraine Sumatriptan Succinate (Imitrex Statdose), 1 DOSE INJ for Pain Tizanidine (Tizanidine HCl), 4 MG PO TID PRN for MUSCLE SPASMS Allergies Coded Allergies: No Known Allergies (Unverified , 06/09/17) Physical Exam Vital Signs Date Time Temp Pulse Resp B/P (MAP) Pulse Ox O2 Delivery O2 Flow Rate FiO2 06/09/17 19:50 86 20 139/81 96 06/09/17 19:11 81 06/09/17 18:36 96 Room Air 06/09/17 18:34 90 20 129/78 98 Room Air 06/09/17 17:22 36.6 99 20 147/92 97 Room Air Physical Exam GENERAL: Awake, alert, well-appearing, NAD HENT: Normocephalic, atraumatic. EYES: Normal conjunctiva. Sclera non-icteric. NECK: Supple. No nuchal rigidity. FROM. RESPIRATORY: CTAB, no rhonchi, wheezing, crackles CARDIAC: RRR, no MRG ABDOMEN: Soft, NTND, BS+ MSK: No chest wall TTP, no LE edema. Positive straight leg raise bilaterally. NEURO: GCS 15, CN 2-12 intact, moves all 4s on command. SKIN: No rash or jaundice noted. Medical Decision & Procedures ER Provider Diagnostic Interpretation: X-ray: Per my interpretation, radiologist review. CHEST ONE VIEW PORTABLE CLINICAL HISTORY: Chest pain. COMPARISON STUDY: Chest radiograph August 08, 2016. FINDINGS: Anterior cervical spine fusion is partially imaged. Lung volumes are normal. There is no pneumothorax or pleural effusion. No consolidation is identified and there is no evidence of pulmonary edema. Cardiomediastinal silhouette is normal. Appearance of the chest is unchanged. IMPRESSION: No acute cardiopulmonary findings. Electronically signed by: Torres Mayorga M.D. 06/09/2017 6:37 PM Dictated Date/Time: 06/09/2017 6:37 PM Laboratory Results 06/09/17 18:15 Red Blood Count 4.14, Mean Corpuscular Volume 90.6, Mean Corpuscular Hemoglobin 30.9, Mean Corpuscular Hemoglobin Concent 34.1, Mean Platelet Volume 8.8, Neutrophils (%) (Auto) 73.4, Lymphocytes (%) (Auto) 18.1, Monocytes (%) (Auto) 5.3, Eosinophils (%) (Auto) 0.5, Basophils (%) (Auto) 0.2, Neutrophils # (Auto) 10.62, Lymphocytes # (Auto) 2.62, Monocytes # (Auto) 0.76, Eosinophils # (Auto) 0.07, Basophils # (Auto) 0.03 06/09/17 18:15 Test 06/09/17 18:15 White Blood Count 14.46 K/uL (4.8-10.8) Red Blood Count 4.14 M/uL (4.2-5.4) Hemoglobin 12.8 g/dL (12.0-16.0) Hematocrit 37.5 % (37-47) Mean Corpuscular Volume 90.6 fL (80-100) Mean Corpuscular Hemoglobin 30.9 pg (25-34) Mean Corpuscular Hemoglobin Concent 34.1 g/dl (32-36) Platelet Count 383 K/uL (130-400) Mean Platelet Volume 8.8 fL (7.4-10.4) Neutrophils (%) (Auto) 73.4 % Lymphocytes (%) (Auto) 18.1 % Monocytes (%) (Auto) 5.3 % Eosinophils (%) (Auto) 0.5 % Basophils (%) (Auto) 0.2 % Neutrophils # (Auto) 10.62 K/uL (1.4-6.5) Lymphocytes # (Auto) 2.62 K/uL (1.2-3.4) Monocytes # (Auto) 0.76 K/uL (0.11-0.59) Eosinophils # (Auto) 0.07 K/uL (0-0.5) Basophils # (Auto) 0.03 K/uL (0-0.2) RDW Standard Deviation 46.4 fL (36.4-46.3) RDW Coefficient of Variation 14.0 % (11.5-14.5) Immature Granulocyte % (Auto) 2.5 % Immature Granulocyte # (Auto) 0.36 K/uL (0.00-0.02) Prothrombin Time 10.0 SECONDS (9.0-12.0) Prothromb Time International Ratio 1.0 (0.9-1.1) Activated Partial Thromboplast Time 24.9 SECONDS (21.0-31.0) Partial Thromboplastin Ratio 1.0 Anion Gap 6.0 mmol/L (3-11) Est Creatinine Clear Calc Drug Dose 92.8 ml/min Estimated GFR () 90.8 Estimated GFR (Non- 78.3 BUN/Creatinine Ratio 16.7 (10-20) Calcium Level 8.0 mg/dl (8.5-10.1) Total Bilirubin 0.2 mg/dl (0.2-1) Direct Bilirubin < 0.1 mg/dl (0-0.2) Aspartate Amino Transf (AST/SGOT) 5 U/L (15-37) Alanine Aminotransferase (ALT/SGPT) 14 U/L (12-78) Alkaline Phosphatase 77 U/L (45-117) Troponin I < 0.015 ng/ml (0-0.045) Total Protein 6.8 gm/dl (6.4-8.2) Albumin 3.1 gm/dl (3.4-5.0) Lipase 509 U/L (73-393) Laboratory results reviewed by me Medications Administered Medications (Trade) Dose Ordered Sig/Tabitha Route Start Time Stop Time Status Last Admin Dose Admin Ondansetron HCl (Zofran Inj) 4 mg NOW STAT IV 06/09/17 17:55 06/09/17 17:56 DC 06/09/17 18:28 4 MG Acetaminophen (Tylenol Tab) 1,000 mg NOW STAT PO 06/09/17 17:55 06/09/17 17:56 DC 06/09/17 18:28 1,000 MG Hydromorphone HCl (Dilaudid Inj) 1 mg NOW STAT IV 06/09/17 17:55 06/09/17 17:56 DC 06/09/17 18:29 1 MG Acetaminophen/ Hydrocodone Bitart ([place] 10/325 Tab) 1 tab ONE STAT PO 06/09/17 19:23 06/09/17 19:25 DC 06/09/17 19:44 1 TAB Tramadol HCl (Ultram Tab) 50 mg NOW STAT PO 06/09/17 19:23 06/09/17 19:25 DC 06/09/17 19:43 50 MG ECG Indication: chest pain Rate (beats per minute): 81 Rhythm: normal sinus Findings: other (Normal intervals, no STS changes or TWI) ED Course 1737: The patient was evaluated in room B06. A complete history and physical exam was performed. 1926: I reevaluated the patient. Discussed results and discharge instructions. After a long discussion, I answered all of her questions, and the patient is comfortable going home. She verbalized understanding and agreement. The patient is ready for discharge. Medical Decision The patient is a 41 year old white female with a past medical history of UTI, anxiety, cervical arthrodesis, migraines, depression, DJD, fibromyalgia, GERD, IBS, osteoarthritis, spinal stenosis, c-spine surgery, , rhinoplasty who presents to the ED with a cc of worsening neck and back pain beginning three days ago. Differential diagnosis: Etiologies such as cardiac ischemia, aortic dissection, pulmonary embolism, pneumonia, pneumothorax, musculoskeletal, infections, pericarditis, myocarditis , esophageal rupture, gastrointestinal, as well as others were entertained. Patient was seen and evaluated the bedside. Patient does have a history of chronic pain and does take Dilaudid 4 times daily. Patient states his sugars recently stopped taking this to see if it would help with her migraines. Patient does have very diffuse and nonspecific back pain. Patient denies any recent change in activity and has not suffered any injury. Patient does complain of some mild chest pain. Patient did have blood work that was completed, EKG, troponin, patient was given pain medication. Patient's EKG is nonischemic with a negative troponin. Patient has a heart score less than 4 less likely to be ACS. Patient is PE RC of 0 this less likely to be PE. Upon reassessment of the patient the patient was feeling mildly improved. We did discuss that given her recent stopping of her pain medication this may have now made a lot of her pain receptors more available for her to experience pain. Patient is feeling improved and patient does have follow-up with her sign painter in addition to her primary care physician. Patient was deemed suitable for outpatient follow-up and treatment at this time. We did discuss things like meningitis however given the patient's history and physical exam thus less likely. Patient white blood cell count was mildly elevated however the patient has been taking chronic prednisone. Patient does not have any other infectious symptoms. Patient was given strict follow-up, discharge, and return precautions. All questions were answered. Patient was deemed suitable for outpatient follow-up at this time. Patient agreed with the plan of care and was safely discharged home. Impression Primary Impression: Chest pain Additional Impression: Back pain Scribe Attestation The scribe's documentation has been prepared under my direction and personally reviewed by me in its entirety. I confirm that the note above accurately reflects all work, treatment, procedures, and medical decision making performed by me. Departure Information Dispostion Home / Self-Care Referrals No Doctor, Assigned (PCP) Forms HOME CARE DOCUMENTATION FORM, IMPORTANT VISIT INFORMATION, WORK / SCHOOL INSTRUCTIONS Patient Instructions Back Pain - [place], Back Pain Relieve, Chest Pain - [facility], Low Back Pain Self Care , [facility] Additional Instructions Please return to the emergency department if you have worsening or recurrent symptoms not amenable to at-home treatment. Please call for a follow-up appointment with her primary care physician. Please take your medications as prescribed. If you have other concerns and/or complaints please feel free to also call your primary care physician's office or return the ED for further evaluation, management, and treatment. You received narcotic or benzodiazepene medication while in the emergency room today. This is an addictive medication that may cause drowziness as well as constipation. Do not drive, operate heavy machinery, or drink alcohol under the influence of this medication. You may take 600 mg Ibuprofen every 6 hours as needed for pain with food for no more than 2 consecutive days. You may take tylenol 1000 mg every 6 hours as needed for pain. You may take motrin and tylenol separately or at the same time. Take your medications as prescribed. You have been examined and treated today on an emergency basis only. This is not a substitute for, or an effort to provide, complete comprehensive medical care. It is impossible to recognize and treat all injuries or illnesses in a single emergency department visit. It is therefore important that you follow up closely with [facility], your PCP, and/or your specialist(s). Call as soon as possible for an appointment. Thank you for your time and consideration. I look forward to speaking with you again soon. Please don't hesitate to call us if you have any questions. Problem Qualifiers Primary Impression: Chest pain Chest pain type: unspecified Qualified Codes: R07.9 - Chest pain, unspecified Additional Impression: Back pain Back pain location: back pain in unspecified location Chronicity: chronic Back pain laterality: unspecified Qualified Codes: M54.9 - Dorsalgia, unspecified; G89.29 - Other chronic pain
[2017-06-09 18:33] LABS: BASO % 0.2 %; BASO ABS # 0.03 K/uL (0-0.2); EOS % 0.5 %; EOS ABS # 0.07 K/uL (0-0.5); HEMATOCRIT 37.5 % (37-47); HEMOGLOBIN 12.8 g/dL (12.0-16.0); IG# 0.36 K/uL (0.00-0.02); LYMPH % 18.1 %; LYMPH ABS # 2.62 K/uL (1.2-3.4); MEAN CELL VOLUME 90.6 fL (80-100); MEAN CORPUSCULAR HEMOGLOBIN 30.9 pg (25-34); MEAN CORPUSCULAR HGB CONC 34.1 g/dl (32-36); MEAN PLATELET VOLUME 8.8 fL (7.4-10.4); MONO % 5.3 %; MONO ABS # 0.76 K/uL (0.11-0.59); NEUT % 73.4 %; NEUT ABS # 10.62 K/uL (1.4-6.5); PLATELET COUNT 383 K/uL (130-400); RED CELL DISTRIBUTION WIDTH SD 46.4 fL (36.4-46.3); WHITE BLOOD COUNT 14.46 K/uL (4.8-10.8)
[2017-06-09 18:36] VITALS: O2SAT 96
--- NOTE | 2017-06-09 18:39 | DIAGNOSTIC IMAGING REPORT ---
CHEST ONE VIEW PORTABLE CLINICAL HISTORY: Chest pain. COMPARISON STUDY: Chest radiograph August 08, 2016. FINDINGS: Anterior cervical spine fusion is partially imaged. Lung volumes are normal. There is no pneumothorax or pleural effusion. No consolidation is identified and there is no evidence of pulmonary edema. Cardiomediastinal silhouette is normal. Appearance of the chest is unchanged. IMPRESSION: No acute cardiopulmonary findings. Electronically signed by: Torres Mayorga M.D. 06/09/2017 6:37 PM Dictated Date/Time: 06/09/2017 6:37 PM
[2017-06-09 18:44] LABS: PTT PATIENT 24.9 SECONDS (21.0-31.0)
[2017-06-09 18:52] LABS: ALBUMIN 3.1 gm/dl (3.4-5.0); ALT/SGPT 14 U/L (12-78); AST/SGOT 5 U/L (15-37); BLOOD UREA NITROGEN 15 mg/dl (7-18); CARBON DIOXIDE 21 mmol/L (21-32); GLUCOSE 103 mg/dl (70-99); LIPASE 509 U/L (73-393); POTASSIUM 3.8 mmol/L (3.5-5.1); SODIUM 140 mmol/L (136-145)
[2017-06-09 18:57] LABS: ALKALINE PHOSPHATASE 77 U/L (45-117); TOTAL PROTEIN 6.8 gm/dl (6.4-8.2)
[2017-06-09] MEDS ORDERED: TRAMADOL HCL 50 MG TAB PO STA (19:23)
[2017-06-09] MEDS ORDERED: HYDROCODONE/ACETAMI 10/325 TAB PO STA (19:23)
[2017-06-09 19:50] VITALS: BP 139/81; PULSE 86; O2SAT 96
== END 2017-06-09 19:51 | disposition home or self-care (01) ==
LOC: C.EDB 17:14
DX: R07.9 Chest pain, unspecified (principal); M54.9 Dorsalgia, unspecified; G89.29 Other chronic pain; F41.9 Anxiety disorder, unspecified; Z98.1 Arthrodesis status; G43.909 Migraine, unspecified, not intractable, without status migrainosus; F32.9 Major depressive disorder, single episode, unspecified; M19.90 Unspecified osteoarthritis, unspecified site; M79.7 Fibromyalgia; K58.9 Irritable bowel syndrome, unspecified; M48.00 Spinal stenosis, site unspecified; G89.4 Chronic pain syndrome; Z87.891 Personal history of nicotine dependence; Z83.3 Family history of diabetes mellitus; Z82.49 Family history of ischemic heart disease and other diseases of the circulatory system; Z84.1 Family history of disorders of kidney and ureter

== ENCOUNTER → 2017-06-21 | Outpatient (CLI) | payer OTHER ==
[~2017-06-21] MED LIST changes: -MORP15TA PO; +POTA99TA PO; +PRED10TA PO; +RIZA10TA18 PO
--- NOTE | 2017-06-21 12:04 | DIAGNOSTIC IMAGING REPORT ---
THYROID ULTRASONOGRAPHY CLINICAL HISTORY: E04.2 Multiple thyroid [id number] Abnormal thyroid blood test COMPARISON STUDY: 07/24/2016 FINDINGS: The right lobe of the thyroid measures 50 x 20 x 20 mm. The left lobe of the thyroid measures 49 x 14 x 21 mm. There are multiple bilateral thyroid nodules. The nodules appear relatively similar. Many are hypoechoic. A few demonstrate colloid artifact. The largest nodules located in the lower pole the left lobe measuring 12 x 11 x 8 mm. This nodule remains essentially unchanged from the preceding study. IMPRESSION: Stable multinodular thyroid gland. None of the nodules meet criteria for biopsy. Continued follow-up is recommended. Electronically signed by: Ever Artis M.D. 06/21/2017 12:03 PM Dictated Date/Time: 06/21/2017 11:59 AM
== END | disposition home or self-care (01) ==
LOC: C.ULTRBC 10:50
PROVIDERS: ATTEND Internal Medicine
DX: R04.2 Hemoptysis (principal); R94.6 Abnormal results of thyroid function studies

== ENCOUNTER → 2017-06-21 | Outpatient (CLI) | payer OTHER ==
[2017-06-21 13:24] LABS: BASO % 0.6 %; BASO ABS # 0.06 K/uL (0-0.2); EOS % 2.7 %; EOS ABS # 0.25 K/uL (0-0.5); HEMATOCRIT 38.2 % (37-47); HEMOGLOBIN 12.7 g/dL (12.0-16.0); IG# 0.02 K/uL (0.00-0.02); LYMPH % 27.6 %; LYMPH ABS # 2.59 K/uL (1.2-3.4); MEAN CELL VOLUME 92.3 fL (80-100); MEAN CORPUSCULAR HEMOGLOBIN 30.7 pg (25-34); MEAN CORPUSCULAR HGB CONC 33.2 g/dl (32-36); MEAN PLATELET VOLUME 9.1 fL (7.4-10.4); MONO % 7.8 %; MONO ABS # 0.73 K/uL (0.11-0.59); NEUT % 61.1 %; NEUT ABS # 5.74 K/uL (1.4-6.5); PLATELET COUNT 324 K/uL (130-400); RED CELL DISTRIBUTION WIDTH CV 14.4 % (11.5-14.5); RED CELL DISTRIBUTION WIDTH SD 48.9 fL (36.4-46.3); WHITE BLOOD COUNT 9.39 K/uL (4.8-10.8)
== END | disposition home or self-care (01) ==
LOC: C.LABBC 11:14
PROVIDERS: ATTEND Physician Assistant Medical
DX: R94.6 Abnormal results of thyroid function studies (principal); G43.009 Migraine without aura, not intractable, without status migrainosus

== ENCOUNTER 2017-08-15 16:39 | Emergency (ER) | payer OTHER ==
[~2017-08-15] VITALS: Ht 167.6 cm; Wt 99.7 kg
[2017-08-15 16:48] VITALS: Ht 167.6 cm; Wt 99.7 kg
[2017-08-15] MEDS ORDERED: KETOROLAC TROMETHAMINE 60 MG/2 ML VIAL IM STA (17:01)
[2017-08-15 17:05] VITALS: TEMP 36.7
[2017-08-15] MEDS ORDERED: MoRPHine SULFATE 4 MG/ML 1 ML CARP\\VIAL IM STA (17:41)
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
[2017-08-15] MEDS ORDERED: PARO30TA4 PO (18:37)
[2017-08-15] MEDS ORDERED: TAPE50TA PO (18:37)
[2017-08-15] MEDS ORDERED: BUPR7.5D TD (18:37)
[2017-08-15] MEDS ORDERED: VARE1PAK10 PO (18:37)
[2017-08-15] MEDS ORDERED: METH20TA66 PO (18:37)
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
[2017-08-15 19:25] VITALS: BP 125/77; PULSE 87; O2SAT 98
== END 2017-08-15 19:26 | disposition home or self-care (01) ==
LOC: EDBD 16:39 → C.EDC 16:40
DX: Z04.1 Encounter for examination and observation following transport accident (principal); V43.52XA Car driver injured in collision with other type car in traffic accident, initial encounter; Y92.410 Unspecified street and highway as the place of occurrence of the external cause; Z87.440 Personal history of urinary (tract) infections; F41.9 Anxiety disorder, unspecified; G43.909 Migraine, unspecified, not intractable, without status migrainosus; G89.4 Chronic pain syndrome; F32.9 Major depressive disorder, single episode, unspecified; M19.90 Unspecified osteoarthritis, unspecified site; M79.7 Fibromyalgia; K21.9 Gastro-esophageal reflux disease without esophagitis; K58.9 Irritable bowel syndrome, unspecified; M48.00 Spinal stenosis, site unspecified; Z83.3 Family history of diabetes mellitus; Z80.9 Family history of malignant neoplasm, unspecified; Z82.49 Family history of ischemic heart disease and other diseases of the circulatory system; Z84.1 Family history of disorders of kidney and ureter; Z87.891 Personal history of nicotine dependence; Z79.899 Other long term (current) drug therapy

== ENCOUNTER → 2017-08-28 | Outpatient (CLI) | payer OTHER ==
[~2017-08-28] MED LIST changes: +BUPR7.5D TD; -DICY10CA12 PO; +GADAVIST IV PRN; -HYDR4TAB78 PO; -METH10TA4 PO; +METH20TA66 PO; -PARO1TAB29 PO; +PARO30TA4 PO; -POTA99TA PO; -PRED10TA PO; +TAPE50TA PO; +VARE1PAK10 PO
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
== END | disposition home or self-care (01) ==
LOC: C.MRIBC 08:23
PROVIDERS: ATTEND Psychiatry & Neurology Neurology
DX: M54.2 Cervicalgia (principal)

== ENCOUNTER 2018-01-14 06:03 | Inpatient (IN) | payer OTHER ==
[2018-01-02 09:39] VITALS: BMI 31.0
--- NOTE | 2018-01-06 16:09 | PAT Medication Instructions ---
Service Date Jan 06, 2018. Current Home Medication List Ascorbic Acid (Vitamin C), 1,000 MG PO HS Celecoxib (CeleBREX), 200 MG PO BID PRN for Pain Cholecalciferol (Vitamin D3), 1,000 UNIT PO BID Lactobacillus (Probiotic), 1 CAP PO HS Loratadine (Claritin), 10 MG PO QAM Magnesium Oxide (Mag-Ox), 400 MG PO BID Marijuana, Home Medication (Marijuana, Home Medication), 1 DOSE PO UD PRN for PRN Methylphenidate HCl (Methylphenidate HCl), 1 TAB PO PRN Pregabalin (Lyrica), 150 MG PO TID Promethazine HCl (Promethazine HCl), 25 MG PO Q6H PRN for NAUSEA Ranitidine Hcl (Zantac), 150 MG PO BID Rizatriptan Benzoate (Maxalt), 10 MG PO DIRECTED PRN for Migraine Sumatriptan Succinate (Imitrex Statdose), 1 DOSE INJ for Pain Topiramate (Topamax), 200 MG PO BID Medication Instructions For Your Scheduled Surgery -Instructions per surgeon: Celecoxib (CeleBREX), 200 MG PO BID PRN for Pain - Hold the following medications the morning of surgery: Cholecalciferol (Vitamin D3), 1,000 UNIT PO BID Loratadine (Claritin), 10 MG PO QAM Magnesium Oxide (Mag-Ox), 400 MG PO BID Methylphenidate HCl (Methylphenidate HCl), 1 TAB PO PRN - Take the following medications the morning of surgery with a sip of water: Marijuana, Home Medication (Marijuana, Home Medication), 1 DOSE PO UD PRN (if needed, and bring with you to the hospital) Pregabalin (Lyrica), 150 MG PO TID Promethazine HCl (Promethazine HCl), 25 MG PO Q6H PRN for NAUSEA (if needed) Ranitidine Hcl (Zantac), 150 MG PO BID Rizatriptan Benzoate (Maxalt), 10 MG PO DIRECTED PRN for Migraine (if needed) Sumatriptan Succinate (Imitrex Statdose), 1 DOSE INJ for Pain (if needed) Topiramate (Topamax), 200 MG PO BID - Take the following medications as scheduled the night before surgery: Ascorbic Acid (Vitamin C), 1,000 MG PO HS Cholecalciferol (Vitamin D3), 1,000 UNIT PO BID Lactobacillus (Probiotic), 1 CAP PO HS Magnesium Oxide (Mag-Ox), 400 MG PO BID Marijuana, Home Medication (Marijuana, Home Medication), 1 DOSE PO UD PRN (if needed) Methylphenidate HCl (Methylphenidate HCl), 1 TAB PO PRN (if needed) Pregabalin (Lyrica), 150 MG PO TID Promethazine HCl (Promethazine HCl), 25 MG PO Q6H PRN for NAUSEA (if needed) Ranitidine Hcl (Zantac), 150 MG PO BID Rizatriptan Benzoate (Maxalt), 10 MG PO DIRECTED PRN for Migraine (if needed) Sumatriptan Succinate (Imitrex Statdose), 1 DOSE INJ for Pain (if needed) Topiramate (Topamax), 200 MG PO BID If you have any questions please call us at [phone] or [phone] or [phone]
--- NOTE | 2018-01-07 11:34 | HISTORY & PHYSICAL EXAMINATION ---
DATE OF ADMISSION: 01/14/2018 CHIEF COMPLAINT: Prolonged irregular bleeding, pelvic pain. HISTORY OF PRESENT ILLNESS: The patient is a 42-year-old, 2, para 2, is having her period twice a month lasting for 5-6 days, at times soaking through the pad in under an hour, along with a lot of clotting. She has also had worsening pelvic pain for over a year. It is midline. It is associated with her periods and it is also associated on the right side when she does not have her period. She has had a transvaginal ultrasound done on 11/26/2017 that showed a normal endometrial stripe. The patient has also been using medical marijuana since 08/2017 to help control the pain. She is presently being scheduled for a total abdominal hysterectomy and right salpingo-oophorectomy. She has 2 children in good health. ALLERGIES: She has no known drug allergies. PAST SURGICAL HISTORY: She has had a rhinoplasty. She has had 2-3 disks fused in her neck along with a cage and she has had a x1. PAST MEDICAL HISTORY: She has been diagnosed with degenerative disk disease and spinal stenosis, both in her neck and her back. SOCIAL HISTORY: She is a half a pack a day smoker for 25 years. No history of excessive alcohol intake. She is disabled. FAMILY HISTORY: Mom is 64, has interstitial cystitis. Father 63, in good health. She has 1 brother in good health. REVIEW OF SYSTEMS: She has history of migraines. No symptoms of frequent or severe bladder infections or ear infections. PHYSICAL EXAMINATION: GENERAL: Well-developed, well-nourished 42-year-old white female, alert, oriented x3 and cooperative, in no acute distress. She has a scar on her neck from previous surgery. EYES: Conjunctivae are pink. Sclerae white, no evidence of jaundice. EARS: Had normal light reflex bilaterally. NOSE: Had normal mucosa. Septum is midline. There were no polyps. THROAT: Had no erythema or evidence of infection. Teeth are in good state of repair. HEAD: Normocephalic, normal distribution of hair. NECK: Supple. Trachea midline. Thyroid is not enlarged. There is no adenopathy appreciated. Both carotids are of good intensity. CHEST: Clear to auscultation and percussion. No wheezes, rales or rhonchi appreciated. HEART: Regular rhythm. BREASTS: Exam is normal. ABDOMEN: Revealed a well-healed Pfannenstiel scar. PELVIC: Revealed a normal appearing cervix. Bimanual exam revealed tenderness in the cul-de-sac and nodularity, especially on the right side. No adnexal masses appreciated. MUSCULOSKELETAL: Revealed no calf tenderness. IMPRESSIONS OF THIS CASE: Status post rhinoplasty, status post section x1, status post post-fusion of disks in her neck, history of cervical stenosis of the neck and the back, pelvic pain, and heavy vaginal bleeding, suspected endometriosis. MTDD
[2018-01-07 11:35] VITALS: BMI 31.0
[2018-01-07 12:15] LABS: BASO % 0.4 %; BASO ABS # 0.04 K/uL (0-0.2); EOS % 1.3 %; EOS ABS # 0.14 K/uL (0-0.5); HEMOGLOBIN 14.2 g/dL (12.0-16.0); IG# 0.01 K/uL (0.00-0.02); LYMPH % 18.4 %; LYMPH ABS # 1.91 K/uL (1.2-3.4); MEAN CELL VOLUME 91.7 fL (80-100); MEAN CORPUSCULAR HGB CONC 33.8 g/dl (32-36); MEAN PLATELET VOLUME 9.2 fL (7.4-10.4); MONO % 5.2 %; MONO ABS # 0.54 K/uL (0.11-0.59); NEUT % 74.6 %; NEUT ABS # 7.74 K/uL (1.4-6.5); PLATELET COUNT 268 K/uL (130-400); RED CELL DISTRIBUTION WIDTH CV 13.4 % (11.5-14.5); RED CELL DISTRIBUTION WIDTH SD 44.4 fL (36.4-46.3); WHITE BLOOD COUNT 10.38 K/uL (4.8-10.8)
[2018-01-07 12:23] LABS: PTT PATIENT 28.2 SECONDS (21.0-31.0)
[2018-01-07 13:39] LABS: CALCIUM 9.5 mg/dl (8.5-10.1); CREATININE 0.95 mg/dl (0.60-1.20); POTASSIUM 4.8 mmol/L (3.5-5.1)
[2018-01-14] VITALS (12 sets, daily range): BP systolic 100–125; BP diastolic 58–84; PULSE 67–82; TEMP 36.5–36.9; O2SAT 94–99; Ht 167.6 cm; Wt 88.7 kg
[~2018-01-14] VITALS: Ht 167.6 cm; Wt 88.7 kg
[~2018-01-14 06:03] MED LIST changes: -BUPR7.5D TD; +CEFOXITIN IV 2,000 MG in DEXTROSE 5% 50ML 50 ML IV SCH; -GADAVIST IV PRN; +LACTATED RINGER'S 1000ML 1,000 ML IV SCH; +LACTATED RINGER'S 1000ML 500 ML IV SCH; +MEDMARIJ PO; -PARO30TA4 PO; -TAPE50TA PO; -VARE1PAK10 PO; -ZNF/4 PO
[2018-01-14] MEDS ORDERED: MIDAZOLAM HCL 1 MG/ML 2ML VIAL ONE (06:39)
[2018-01-14] MEDS ORDERED: LIDOCAINE HCL 2% 2 ML VIAL (20MG/ML) ONE (06:40)
[2018-01-14] MEDS ORDERED: NEOSTIGMINE METHYLSULFATE 5 MG/5 ML SYR ONE (06:40)
[2018-01-14] MEDS ORDERED: GLYCOPYRROLATE INJ 0.2 MG/ML VIAL ONE (06:40)
[2018-01-14] MEDS ORDERED: ROCURONIUM BROMIDE 10 MG/ML 5 ML VIAL ONE (06:40)
[2018-01-14] MEDS ORDERED: MoRPHine SULFATE PF 1 MG/ML 10 ML AMP/VIAL ONE (06:40)
[2018-01-14] MEDS ORDERED: ONDANSETRON INJ 2 MG/ML 2 ML VIAL ONE (06:40)
[2018-01-14] MEDS ORDERED: PROPOFOL IV EMULSION 10 MG/ML 20 ML VIAL ONE (06:40)
[2018-01-14] MEDS ORDERED: FENTANYL CITRATE INJ 50 MCG/1 ML 2 ML VIAL ONE (06:40)
[2018-01-14] MEDS ORDERED: DEXAMETHASONE SOD INJ 4 MG/ML VIAL ONE (06:40)
[2018-01-14] MEDS ORDERED: BUPIVACAINE 0.5 % 5 MG/1 ML PF 10ML VIAL ONE (06:58)
--- NOTE | 2018-01-14 08:28 | History & Physical Bridge Note ---
H&P Re-Evaluation Bridge Note: I have examined the patient, reviewed the History & Physical and in the interval since the performance of the History & Physical I have noted the following changes of clinical significance: No changes noted
[2018-01-14] MEDS ORDERED: NALOXONE HCL INJ 1 MG in SODIUM CHLORIDE 0.9% 1000ML 1,000 ML IV PRN (10:43)
[2018-01-14] MEDS ORDERED: LACTATED RINGER'S 1000ML 500 ML IV PRN (10:43)
[2018-01-14] MEDS ORDERED: NALOXONE HCL INJ 0.08 MG in SYRINGE 1.8 ML IV PRN (10:43)
[2018-01-14] MEDS ORDERED: MEPERIDINE HCL 25 MG/ML CARP IV PRN (10:45)
[2018-01-14] MEDS ORDERED: ONDANSETRON INJ 2 MG/ML 2 ML VIAL IV PRN ×2 (10:45→11:45)
[2018-01-14] MEDS ORDERED: NO NARCOTICS OR SEDATIVES SCH (10:45)
[2018-01-14] MEDS ORDERED: FENTANYL CITRATE INJ 50 MCG/1 ML 2 ML VIAL IV PRN (10:45)
[2018-01-14] MEDS ORDERED: ATROPINE SULFATE 0.1 MG/ML 5ML SYR IV PRN (10:45)
[2018-01-14] MEDS ORDERED: DiphenhydrAMINE HCL 50 MG/ML VIAL IV PRN (10:45)
[2018-01-14] MEDS ORDERED: NALOXONE HCL 0.4 MG/1 ML VIAL/CARP IV PRN (10:45)
[2018-01-14] MEDS ORDERED: EpHEDrine SULFATE INJ 50 MG/ML AMP IV PRN ×2 (10:45)
[2018-01-14] MEDS ORDERED: MoRPHine SULFATE 2 MG/ML CARP IV PRN (10:45)
[2018-01-14] MEDS ORDERED: NALBUPHINE HCL INJ 10 MG/ML 1ML AMP IV PRN (10:45)
[2018-01-14] MEDS ORDERED: MoRPHine SULFATE PF 1 MG/ML 10 ML AMP/VIAL EPI PRN (10:45)
[2018-01-14] MEDS ORDERED: HYDROmorphone INJ 1 MG/ML SYR IV PRN (10:45)
[2018-01-14] MEDS ORDERED: KETOROLAC TROMETHAMINE 30 MG/ML VIAL ONE (10:58)
--- NOTE | 2018-01-14 11:31 | [facility] Post Operative Brief Note ---
Immediate Operative Summary Operative Date Jan 14, 2018. Pre-Operative Diagnosis Pelvis pain Post-Operative Diagnosis Pelvic pain Procedure(s) Performed Total Abdominal Hysterectomy and Right Salpingo-Oopherectomy Surgeon Dr. Contreras [employer] Representative Surgeon(s) NONE Estimated Blood Loss 100 ml Findings Consistent with Post-Op Diagnosis Fluids (cc crystalloids) 1500 ml Specimens A: Cervix, Uterus, Right Fallopian Tube, and Right Ovary Drains None Anesthesia Type General/Epidural Complication(s) none Disposition Accompanied Pt To Recover: no Overlapping Procedure I was immediately available: during the entire case
[2018-01-14] MEDS ORDERED: SENNA 8.6 MG TAB PO PRN (11:45)
[2018-01-14] MEDS ORDERED: BISACODYL 10 MG SUPP PR PRN (11:45)
[2018-01-14] MEDS ORDERED: MAGNESIUM HYDROXIDE SUSP 30 ML UDC PO PRN (11:45)
[2018-01-14] MEDS ORDERED: ACETAMINOPHEN IV 100 ML IV PRN (12:30)
--- NOTE | 2018-01-14 12:30 | Anesthesiology Progress Note ---
Anesthesia Post Op Note Date & Time Jan 14, 2018 at 12:30 Vital Signs Pain Intensity: 0 Vital Signs Past 12 Hours Date Time Temp Pulse Resp B/P (MAP) Pulse Ox O2 Delivery O2 Flow Rate FiO2 01/14/18 12:17 66 24 01/14/18 12:17 65 24 100 01/14/18 12:16 127/83 01/14/18 12:12 63 18 97 01/14/18 12:12 63 18 01/14/18 12:11 114/73 01/14/18 12:08 37.2 64 20 114/73 (95) 99 Nasal Cannula 2 01/14/18 12:07 68 21 01/14/18 12:07 68 21 99 01/14/18 12:06 114/76 01/14/18 12:02 68 26 99 01/14/18 12:02 68 26 01/14/18 12:01 116/74 01/14/18 11:57 64 16 100 01/14/18 11:57 64 16 01/14/18 11:56 113/72 01/14/18 11:52 65 15 01/14/18 11:52 65 15 97 01/14/18 11:51 71 26 123/85 97 01/14/18 11:51 70 26 01/14/18 11:46 77 24 120/70 97 01/14/18 11:46 77 24 01/14/18 11:42 115/77 01/14/18 11:41 81 25 96 01/14/18 11:41 85 25 01/14/18 11:41 36.2 86 16 115/77 (92) 96 Oxymask 10 01/14/18 06:36 36.8 80 18 125/84 95 Room Air Notes Mental Status: alert / awake / arousable, participated in evaluation Pt Amnestic to Procedure: Yes Nausea / Vomiting: adequately controlled Pain: adequately controlled Airway Patency, RR, SpO2: stable & adequate BP & HR: stable & adequate Hydration State: stable & adequate Neuraxial Anesthesia: was administered, sensory block is resolving Anesthetic Complications: no major complications apparent
[2018-01-14] MEDS ORDERED: SODIUM CHLORIDE 0.9% 1000ML 1,000 ML IV PRN (13:00)
[2018-01-14] MEDS: D5W AND LACTATED RINGERS 1,000 ML IV SCH ×2 (13:07→20:42)
[2018-01-14] MEDS ORDERED: MEPERIDINE HCL 50 MG/ML CARP IV PRN (13:45)
[2018-01-14] MEDS ORDERED: NURSING VERBAL MED ORDER ONE (14:00)
[2018-01-14] MEDS ORDERED: MEDICAL MARIJUANA PO PRN (15:00)
--- NOTE | 2018-01-14 15:47 | OPERATIVE REPORT ---
DATE OF OPERATION: 01/14/2018 PROCEDURE: This is an operative notation of a total abdominal hysterectomy, right salpingo-oophorectomy, and suspension of vaginal cuff. INDICATIONS FOR SURGERY: Heavy vaginal bleeding, pelvic pain. PREOPERATIVE DIAGNOSIS: Hypermenorrhea, pelvic pain. POSTOPERATIVE DIAGNOSIS: Hypermenorrhea, pelvic pain. PATHOLOGY: Pending. SURGEON: Odalis Contreras M.D. ESTIMATED BLOOD LOSS: 100 mL ANESTHESIA: General with spinal narcotics. OPERATIVE FINDINGS AND PROCEDURE: The patient brought to the OR table, correctly identified by armband and conversation. Spinal narcotics were administered and then general anesthesia was administered. A Balbunea catheter was inserted aseptically in the bladder connected to gravity drainage. Compression stockings were applied. Lower abdomen was painted with an alcohol-based sterilizing solution, draped in usual sterile fashion. A prior Pfannenstiel incision was excised above and below the scar and then incision was carried down to the anterior fascia by sharp dissection. Hemostasis was secured by electrocauterization. Fascia was incised transversely from an underlying muscle by blunt and sharp dissection. Recti muscles were in the midline exposing peritoneum, which was carefully raised and entered. An O'Arvind-O'Arzate self-retraining retractor was inserted into the incision. Several moist laparotomy pads were used to retract the intestines and provide adequate exposure of the pelvic cavity. The uterus was grasped with a double tooth tenaculum. The round ligaments on either sides were doubly ligated and tagged and clamped proximally with a Manasa. The infundibulopelvic ligament on the right side was identified by entering the peritoneal space and then doubly ligating the blood supply to the right ovary. We then cut the round ligaments, made an incision above the vesicouterine fold, advanced the bladder out of the operative field. On the patient's left side, we punched through the broad ligament and clamped the adnexa proximally and distally, doubly ligated it and then cut it away from the fundus of the uterus. On the right side, we cut the ovary away from the lateral pelvic wall. We then exposed the uterine vessels on either side, doubly ligated them with curved Papi's then cut them and then sutured with a chromic gut suture. Following this, the bladder was advanced out of the operative field. The cardinal ligaments were clamped by sliding off the cervix with a curved Papi, cutting with a stump and then ligating with a chromic gut suture. This was done in two-steps on both the right and the left side due to the length of the cardinal ligament. We then shelled out the cervix, thus excising the surgical specimen consisting of uterus, cervix, right tube and ovary. We sutured the angles of the vaginal cuff to the stumps of the cardinal ligaments on both the right and left side. We then approximated the vaginal cuff front to back with a [id number] suture on the cuff edges and anchored in the cardinal ligament stumps. The mid portion of the vaginal cuff was whipstitched open. A Tomeka drain with a safety pin was placed into the opening. We then supported the posterior vagina with partial obliteration of the cul-de-sac by going from the cardinal ligament on one side and then advancing to the distal uterosacral ligament on one side and then advancing to the distal uterosacral ligament on the other and then the process was repeated thus the supporting the posterior vaginal cuff with a [id number]-vw-[id number] suture of heavy Vicryl. Following this, hemostasis was excellent. We then reperitonealized, thus also helping to support the vaginal cuff. Following reperitonealization, we washed the pelvis. Hemostasis was excellent. Packs were removed. Careful anatomical approximation of the anterior abdominal wall was performed. Peritoneum was closed with a mattress suture of chromic catgut. Recti muscles were approximated with interrupted jpldik-[id number]-auwcj suture of chromic catgut. The fascia was closed with continuous interlocking suture of Vicryl on each side, tied in the midline. SubQ was approximated with a continuous plain. Skin edge approximated with staple clips. I attest to the content of the Intraoperative Record and any orders documented therein. Any exception s are noted below.
[2018-01-14] MEDS: MoRPHine SULFATE 2 MG/ML CARP IV PRN ×2 (18:47→23:25)
[2018-01-14] MEDS: PREGABALIN 150 MG CAP PO SCH (20:42)
[2018-01-14] MEDS ORDERED: PREGABALIN 75 MG CAP PO SCH (21:00)
[2018-01-15] VITALS (9 sets, daily range): BP systolic 92–120; BP diastolic 58–76; PULSE 65–84; TEMP 36.5–37.2; O2SAT 94–100
[2018-01-15] MEDS ORDERED: KETOROLAC TROMETHAMINE 30 MG/ML VIAL IV. PRN (03:00)
[2018-01-15] MEDS ORDERED: DC INTRASPINAL MORPHINE ONE (03:00)
[2018-01-15] MEDS ORDERED: MEPERIDINE HCL 50 MG/ML CARP IV PRN ×2 (03:00)
[2018-01-15 06:54] LABS: BASO % 0.1 %; BASO ABS # 0.02 K/uL (0-0.2); EOS % 0.1 %; EOS ABS # 0.02 K/uL (0-0.5); HEMATOCRIT 34.5 % (37-47); HEMOGLOBIN 11.4 g/dL (12.0-16.0); IG# 0.03 K/uL (0.00-0.02); LYMPH % 14.6 %; LYMPH ABS # 2.04 K/uL (1.2-3.4); MEAN CELL VOLUME 92.7 fL (80-100); MEAN CORPUSCULAR HEMOGLOBIN 30.6 pg (25-34); MONO % 6.8 %; MONO ABS # 0.95 K/uL (0.11-0.59); NEUT % 78.2 %; NEUT ABS # 10.87 K/uL (1.4-6.5); PLATELET COUNT 292 K/uL (130-400); RED CELL DISTRIBUTION WIDTH CV 13.3 % (11.5-14.5); RED CELL DISTRIBUTION WIDTH SD 44.9 fL (36.4-46.3); WHITE BLOOD COUNT 13.93 K/uL (4.8-10.8)
[2018-01-15] MEDS: PREGABALIN 150 MG CAP PO SCH ×2 (09:06→20:39)
--- NOTE | 2018-01-15 09:09 | Anesthesiology Progress Note ---
Anesthesia Post Op Note Date & Time Jan 15, 2018 at 09:08 Vital Signs Pain Intensity: 3.0 Vital Signs Past 12 Hours Date Time Temp Pulse Resp B/P (MAP) Pulse Ox O2 Delivery O2 Flow Rate FiO2 01/15/18 07:15 36.6 67 18 104/64 (77) 98 Room Air 01/15/18 07:15 98 Room Air 01/15/18 04:50 37.2 70 18 96/58 (71) 98 Room Air 01/15/18 02:20 18 96 01/15/18 01:35 18 94 01/15/18 00:35 18 94 01/14/18 23:25 18 98 01/14/18 23:25 98 Room Air 01/14/18 23:25 36.6 67 18 100/61 (74) 98 Room Air 01/14/18 22:00 16 96 Notes Mental Status: alert / awake / arousable, participated in evaluation Pt Amnestic to Procedure: Yes Nausea / Vomiting: adequately controlled Pain: adequately controlled Airway Patency, RR, SpO2: stable & adequate BP & HR: stable & adequate Hydration State: stable & adequate Anesthetic Complications: no major complications apparent
[2018-01-15] MEDS: IBUPROFEN 600 MG TAB PO PRN ×2 (09:14→21:27)
[2018-01-15] MEDS: OXYCODONE/ACETAMINOPHEN 5-325 TAB PO PRN ×4 (09:15→22:16)
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
[2018-01-16] MEDS: OXYCODONE/ACETAMINOPHEN 5-325 TAB PO PRN ×2 (02:28→08:14)
[2018-01-16 04:40] VITALS: BP 110/72; PULSE 71; TEMP 36.6; O2SAT 98
[2018-01-16] MEDS: IBUPROFEN 600 MG TAB PO PRN (04:46)
[2018-01-16 07:50] VITALS: BP 120/75; PULSE 74; TEMP 36.6; O2SAT 98
[2018-01-16 07:53] LABS: BASO % 0.2 %; BASO ABS # 0.02 K/uL (0-0.2); EOS % 1.1 %; HEMATOCRIT 32.1 % (37-47); HEMOGLOBIN 10.6 g/dL (12.0-16.0); IG# 0.02 K/uL (0.00-0.02); LYMPH % 28.5 %; LYMPH ABS # 2.57 K/uL (1.2-3.4); MEAN CELL VOLUME 93.3 fL (80-100); MEAN CORPUSCULAR HEMOGLOBIN 30.8 pg (25-34); MEAN PLATELET VOLUME 8.9 fL (7.4-10.4); MONO % 6.4 %; MONO ABS # 0.58 K/uL (0.11-0.59); NEUT % 63.6 %; NEUT ABS # 5.74 K/uL (1.4-6.5); PLATELET COUNT 283 K/uL (130-400); RED CELL DISTRIBUTION WIDTH CV 13.4 % (11.5-14.5); RED CELL DISTRIBUTION WIDTH SD 46.2 fL (36.4-46.3); WHITE BLOOD COUNT 9.03 K/uL (4.8-10.8)
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
--- NOTE | 2018-01-16 08:24 | Discharge Instructions ---
Discharge Instructions Date of Service Jan 16, 2018. Admission Reason for Admission: Dysfunctional Uterine Bleeding, Pelvic Pain, Dyspa Discharge Discharge Diagnosis / Problem: pelvic pain heavy vaginal bleeding Discharge Goals Goal(s): Routine recovery after surgery Activity Recommendations Activity Limitations: as noted below ACTIVITY RECOMMENDATIONS: * Gradual return to full activity over next 2-3 weeks. * No heavy lifting over next 2-3 weeks. * Nothing in the vagina (no intercourse, tampons, or douching) for 4 weeks * You may walk up and down steps as necessary. * You may drive a car in 2 weeks. * Hot shower or tub bath daily. SPECIAL CARE INSTRUCTIONS: * Check temperature twice daily for one week. Report any elevation over 100.4 degrees Fahrenheit (38.0 degrees Celsius). * Call your doctor if bleeding becomes heavier than the heaviest part of your period - saturating a sanitary pad within an hour. * If you develop a red, hard, warm swollen lump on your incision or if you develop any separation of or drainage from your incision, notify your doctor. . Current Hospital Diet ACTIVITY RECOMMENDATIONS: * Gradual return to full activity over next 2-3 weeks. * No heavy lifting over next 2-3 weeks. * Nothing in the vagina (no intercourse, tampons, or douching) for 4 weeks * You may walk up and down steps as necessary. * You may drive a car in 2 weeks. * Hot shower or tub bath daily. SPECIAL CARE INSTRUCTIONS: * Check temperature twice daily for one week. Report any elevation over 100.4 degrees Fahrenheit (38.0 degrees Celsius). * Call your doctor if bleeding becomes heavier than the heaviest part of your period - saturating a sanitary pad within an hour. * If you develop a red, hard, warm swollen lump on your incision or if you develop any separation of or drainage from your incision, notify your doctor. Patient's current hospital diet: Regular Diet Discharge Diet Recommended Diet: Regular Diet Procedures Procedures Performed: Total Abdominal Hysterectomy and Right Salpingo-Oopherectomy Pending Studies Studies pending at discharge: no Medical Emergencies . Who to Call and When: Medical Emergencies: If at any time you feel your situation is an emergency, please call 911 immediately. . Non-Emergent Contact Non-Emergency issues call your: Data Processing Control Clerk Call Non-Emergent contact if: temperature is above 100.5 . . "Provider Documentation" section prepared by Bharat Contreras. .
--- NOTE | 2018-01-16 08:43 | DISCHARGE SUMMARY ---
Ms. Shelton was admitted with diagnosis of chronic pelvic pain, heavy vaginal bleeding. On the day of admission, she was taken to the OR where she received general anesthesia along with spinal narcotics. She underwent a total abdominal hysterectomy, right salpingo-oophorectomy, and suspension of the vaginal cuff. Her preoperative hemoglobin was 14.2, hematocrit 42.0. Postoperatively, hemoglobin fell to 10.6, hematocrit 32.1. Her postoperative course was normal. Her bowel sounds returned promptly. On the second postoperative day, vaginal drain with safety pin fell out of the vaginal cuff and at the time of discharge, she was ambulating well, tolerating regular diet well. Pain was controlled with a combination of Percocet and Motrin and she was told to call the office. She had a temperature over 100 or any heavy bleeding and to call in a week for removal of tami.
[2018-01-16 10:11] VITALS: BP 120/75; PULSE 74; TEMP 36.6; O2SAT 98
== END 2018-01-16 10:25 | disposition home or self-care (01) | DRG 743 ==
LOC: C.ACU 06:03 → C.MS4N 11:39 → ENRESERV 12:07
PROVIDERS: ADMIT Obstetrics & Gynecology; ATTEND Obstetrics & Gynecology
PROC: 0UT00ZZ Resection of Right Ovary, Open Approach (ICD-10-PCS; principal; 2018-01-14 07:15)
PROC: 0UT50ZZ Resection of Right Fallopian Tube, Open Approach (ICD-10-PCS; principal; 2018-01-14 07:15)
PROC: 0UTC0ZZ Resection of Cervix, Open Approach (ICD-10-PCS; principal; 2018-01-14 07:15)
PROC: 0UT90ZZ Resection of Uterus, Open Approach (ICD-10-PCS; principal; 2018-01-14 07:15)
PROC: 0USG0ZZ Reposition Vagina, Open Approach (ICD-10-PCS; principal; 2018-01-14 07:15)
DX: N92.1 Excessive and frequent menstruation with irregular cycle (principal); N94.4 Primary dysmenorrhea; E87.6 Hypokalemia

== ENCOUNTER 2018-06-23 05:34 | Inpatient (IN) ==
--- NOTE | 2018-06-18 10:41 | Anesthesiology Consultation ---
Date of Service June 18, 2018 Assessment & Plan (1) Encounter for pre-operative examination: Chart Review Chart Review: Acceptable Risk for Surgery and Patient NOT seen in Pre Admission Testing Consults Requested none History Surgery Operation Date: 06/23/18 09:50 Proposed Procedures p Removal and Replace Cervical Plate; C4-C5, C5-C6, C6-C7 Revision Anterior Cervical Discectomy and Fusion, with Iliac Crest Bone Graft, - Jeff Aguilar DO Height/Weight Height: 1.68 m Weight: 86.121 kg Allergies Allergy/AdvReac Type Severity Reaction Status Date / Time No Known Allergies Allergy Verified 06/16/18 06:11 Medications Home Medications Medication Instructions Recorded Confirmed Last Taken Marijuana 1 dose PO UD PRN 03/03/18 06/16/18 06/15/18 22:30 cholecalciferol (vitamin D3) 1,000 unit PO BID 03/03/18 06/16/18 06/15/18 08:00 [Vitamin D3] cyanocobalamin (vitamin B-12) 5,000 mcg SUBLINGUAL QAM 03/03/18 06/16/18 08:00 [Vitamin B-12] magnesium 400 mg PO BID 03/03/18 06/16/18 06/15/18 08:00 ondansetron [Zofran ODT] 4 mg PO Q6H PRN #14 tab 03/03/18 06/16/18 06/05/18 potassium 99 mg PO QAM 03/03/18 06/16/18 06/15/18 08:00 rizatriptan 10 mg PO UD PRN 03/03/18 06/16/18 Unknown vitamin A 1 tab PO QAM 03/03/18 06/16/18 06/15/18 08:00 ranitidine HCl [Zantac] 150 mg PO BID 03/05/18 06/16/18 06/16/18 04:00 promethazine 25 mg PO Q6H PRN 06/10/18 06/16/18 06/16/18 04:00 sumatriptan succinate [Imitrex 1 dose SUBCUT UD 06/10/18 06/16/18 Unknown STATdose Pen] trospium 60 mg PO QAM 06/10/18 06/16/18 06/15/18 08:00 turmeric root extract 500 mg PO QAM 06/10/18 06/16/18 06/09/18 Past Medical History Medical History Ileus ?2012 PER RECORDS; NO NOTED SURGICAL INTERVENTION NOTED GERD (gastroesophageal reflux disease) Anxiety disorder History of Clostridium difficile colitis LAST EPISODE 2014 Fibromyalgia Chronic migraine DJD (degenerative joint disease) Spinal stenosis Osteoarthritis Complicated UTI (urinary tract infection) (Inactive) Pyelonephritis (Inactive) ADD (attention deficit disorder) Chronic back pain NECK AND BACK; UE/LE RADICULOPATHY Depression Diverticular disease IBS (irritable bowel syndrome) Temporomandibular joint disorder NO LOCKING Past Family History Family History Mother Family history of diabetes mellitus Other No pertinent family history Past Surgical History Surgical History History of cervical spinal surgery C3-C6 ACDF History of section History of rhinoplasty H/O: hysterectomy + RIGHT OOPHORECTOMY= 01/14/18= GRADE VIEW 1, MAC 3, ETT 7.0 AT [facility] Past Anesthesia History No Hx of Anesthesia Complications History of PONV No Motion Sickness Screening History of Motion Sickness: No Social History Smoking Status: Former smoker tobacco type: cigarettes Smoking cigarettes per day: 10 Hx Alcohol Use: No Hx Substance Use: No Exercise / Class Metabolic Activity II 4-5 Yardwork/Stairs/Walk up hill Testing Chest X-Ray Date: 06/09/18 Findings: + NAD Laboratory Results Laboratory Tests 06/21/17 06/09/18 06/09/18 11:20 14:38 14:38 WBC 11.82 H Hgb 13.9 Hct 41.7 Plt Count 330 PT 10.3 INR 1.0 APTT 29.0 Sodium Potassium Chloride Carbon Dioxide BUN Creatinine Glucose TSH 3.010 06/09/18 14:43 WBC Hgb Hct Plt Count PT INR APTT Sodium 137 Potassium 4.0 Chloride 106 Carbon Dioxide 25 BUN 16 Creatinine 1.06 Glucose 86 TSH
--- NOTE | 2018-06-20 12:16 | History and Physical Report ---
DATE OF ADMISSION: 06/23/2018 CHIEF COMPLAINT: Neck pain, upper extremity pain, paresthesias, numbness and tingling. Working diagnosis of a degenerative segment of the cervical spine, multiple levels, nonunion cervical spine. HISTORY OF PRESENT ILLNESS: She is scheduled for surgery, removal and replace of cervical plate and revision C4-C7 cervical spine. PAST MEDICAL HISTORY: Positive for migraine, sinusitis, arthritis. No diabetes, heart disease, anxiety. PAST SURGICAL HISTORY: x1, nose reconstruction, cervical surgery. ALLERGIES: Negative. FAMILY HISTORY: Heart disease, diabetes, breast CA. SOCIAL HISTORY: She is , 2 children. No alcohol. Ex-cigarette smoker. REVIEW OF SYSTEMS: Twelve system review taken today is positive for weight gain and fatigue, sinus issue, nosebleeds. Positive for chest pain, palpitations, swelling, shortness of breath. She has nausea, heartburn, loss of appetite. She has frequent urination, slight incompetence, depression, sleep problems. She has lightheadedness, dizziness. Joint pain, stiffness, weakness and easy bruisability. MEDICATIONS: Nucynta, promethazine, Lyrica, Paxil, Celebrex, Claritin, probiotics. PHYSICAL EXAMINATION: GENERAL: 5 feet 6 inches, 190. No terrible distress, in the office, pretty significant agonizing neck pain, arm pain, headaches, communicates well, appropriately dressed. VITAL SIGNS: Blood pressure 130/80, pulse 80s, respirations 16. HEENT EXAMINATION: Normal. HEART: Normal S1, S2. LUNGS: Clear. ABDOMEN: Soft, nontender. EXTREMITIES: Intact. NEUROLOGIC: She has slight loss of sensation. Slight paresthesias, slight weakness. Spurling maneuver and Lhermitte sign. IMAGES: Reviewed. PLAN: Includes removal and replace of cervical spine plate and revision ACDF, cervical spine with iliac crest bone graft, C4-C7 cervical spine.
[2018-06-23] MEDS ORDERED: CEFAZOLIN 2000MG 2,000 MG/15 ML SYR IV SCH (06:00)
[2018-06-23] MEDS ORDERED: ONDANSETRON INJ 2 MG/ML 2 ML VIAL IV PRN (06:51)
[2018-06-23] MEDS ORDERED: ePHEDrine sulfate 50 MG/ML AMP IV PRN (06:51)
[2018-06-23] MEDS ORDERED: HYDROmorphone INJ 1 MG/ML SYRINGE IV PRN (06:51)
[2018-06-23] MEDS ORDERED: ATROPINE SULFATE 0.1 MG/ML 10ML SYR IV PRN (06:51)
[2018-06-23] MEDS ORDERED: GELATIN SPONGE SZ 100 ONE (06:53)
[2018-06-23] MEDS ORDERED: BUPIVACAINE/EPINEPHRINE 0.5% MPF 1:200,000 30 ML VIAL ONE (06:53)
[2018-06-23] MEDS ORDERED: BACITRACIN INJ 50,000 UNIT VIAL ONE (06:53)
[2018-06-23] MEDS ORDERED: THROMBIN FOR SOLN 20000 UNIT KIT ONE (06:53)
[2018-06-23] MEDS ORDERED: fentaNYL citrate 100 MCG/2 ML VIAL ONE ×3 (07:09→09:33)
[2018-06-23] MEDS ORDERED: MIDAZOLAM HCL 1 MG/ML 2ML VIAL ONE (07:09)
--- NOTE | 2018-06-23 07:22 | History & Physical Bridge Note ---
Date of Service June 23, 2018 History & Physical Bridge Note I have examined the patient, reviewed the History & Physical and in the interval since the performance of the History & Physical I have noted the following changes of clinical significance: no changes noted
[2018-06-23] MEDS ORDERED: HYDROmorphone INJ 2 MG/ML SYR/VIAL ONE (07:57)
[2018-06-23] MEDS ORDERED: FLOSEAL HEMOSTATIC MATRIX 10ML TOP ONE (08:15)
[2018-06-23] MEDS ORDERED: ROCURONIUM BROMIDE 10 MG/ML 5 ML VIAL ONE (08:16)
[2018-06-23] MEDS ORDERED: GLYCOPYRROLATE 0.2 MG/ML VIAL ONE (08:16)
[2018-06-23] MEDS ORDERED: LIDOCAINE HCL 2% 2 ML VIAL/AMP(20MG/ML) INFIL ONE (08:16)
[2018-06-23] MEDS ORDERED: DEXAMETHASONE SOD INJ 4 MG/ML VIAL ONE (08:16)
[2018-06-23] MEDS ORDERED: LARYING-O-JET KIT (LTA) ONE (08:16)
[2018-06-23] MEDS ORDERED: PROPOFOL IV EMULSION 10 MG/ML 20 ML VIAL IV ONE (08:16)
[2018-06-23] MEDS ORDERED: ePHEDrine sulfate 50 MG/ML SYR ONE (08:16)
[2018-06-23] MEDS ORDERED: NEOSTIGMINE METHYLSULFATE 5 MG/5 ML SYR ONE (08:16)
[2018-06-23] MEDS ORDERED: ONDANSETRON INJ 2 MG/ML 2 ML VIAL ONE (08:16)
[2018-06-23] MEDS ORDERED: ALBUTEROL HFA INHALER 8.5 GM ONE (08:30)
--- NOTE | 2018-06-23 10:42 | Post Operative Brief Note ---
Immediate Post Op Note v1 Date of Surgery June 23, 2018 Pre & Post Diagnosis Operation Date: 06/23/18 07:30 Pre-Op Diagnosis: Cord Compression Post-Op Diagnosis: Cord Compression Procedure Operation Date: 06/23/18 07:30 Actual Procedures p Removal and Replace Cervical Plate, C4-C5, C5-C6, C6-C7 Revision Anterior Cervical Discectomy and Fusion, with Left Iliac Crest Bone Graft - Jeff Aguilar DO Surgeon Jeff Aguilar DO [employer] Machine Assembler susu Estimated Blood Loss 50 Findings Consistent with Post-Op Diagnosis Drains Balbuena Catheter
[2018-06-23] MEDS: fentaNYL citrate 100 MCG/2 ML VIAL IV PRN ×4 (11:15→11:30)
--- NOTE | 2018-06-23 11:27 | Fluoroscopy Report ---
FL spine 1V any level CLINICAL HISTORY: REMOVAL AND REPLACE CERVICAL PLATE C4-C7 REVISION ACDF COMPARISON STUDY: Cervical spine MRI August 20, 2017. CT of the cervical spine May 29, 2018. FLUOROSCOPY TIME: 6 seconds. FLUOROSCOPIC IMAGES: 2 FINDINGS: These images demonstrate a C4-C6 anterior discectomy and fusion. There is also an anterior fusion at the C6-C7 level. IMPRESSION: Fluoroscopic images demonstrating a C4-C7 anterior fusion. Electronically signed by: Torres Mayorga M.D. 06/23/2018 11:26 AM
--- NOTE | 2018-06-23 11:51 | Anesthesiology Progress Note ---
Date of Service June 23, 2018 Anesthesia Post Procedure Vital Signs Vital Signs: Temp Pulse Pulse Resp BP Pulse Ox 06/23/18 11:45 36.9 C 80 14 115/75 96 06/23/18 11:35 36.9 C 81 14 124/72 97 06/23/18 11:25 78 16 125/80 95 06/23/18 11:15 84 16 137/72 97 06/23/18 11:05 78 13 119/76 95 06/23/18 10:55 93 H 17 126/79 98 06/23/18 10:46 36.6 C 89 16 120/80 96 06/23/18 06:07 36.7 C 83 18 121/78 97 Pain Intensity Medial Back: Pain Intensity: 7 Medial Neck: Pain Intensity: 3 Notes Mental Status: alert / awake / arousable Patient Amnestic to Procedure: Yes Nausea / Vomiting: adequately controlled Pain: adequately controlled Airway Patency, RR, SpO2: stable & adequate BP & HR: stable & adequate Hydration State: stable & adequate Anesthetic Complications: no major complications apparent and Pt Satisfied with anesthetic care
[2018-06-23] MEDS ORDERED: SUMAtriptan succinate 6 MG/0.5 ML VIAL SQ PRN (12:20)
[2018-06-23] MEDS ORDERED: RIZATRIPTAN BENZOATE 10 MG TAB PO PRN (12:20)
[2018-06-23] MEDS ORDERED: NALOXONE HCL 0.4 MG/1 ML VIAL/CARP IV PRN (12:20)
[2018-06-23] MEDS ORDERED: RACEPINEPHRINE 2.25% NEBU SOLN 0.5 ML VIAL INH PRN (12:20)
[2018-06-23] MEDS ORDERED: PROMETHAZINE HCL 25 MG TAB PO PRN (12:20)
[2018-06-23] MEDS ORDERED: DEXAMETHASONE SOD PHOSPHATE 8 MG in SYRINGE 0 ML IV PRN (12:20)
[2018-06-23] MEDS ORDERED: ACETAMINOPHEN 1,000 MG/100 ML VIAL IV PRN (12:20)
[2018-06-23] MEDS ORDERED: ONDANSETRON 4 MG OD TAB PO PRN (12:20)
[2018-06-23] MEDS: HYDROmorphone INJ 0.5 MG/0.5 ML SYR IV PRN ×3 (12:50→19:41)
[2018-06-23] MEDS ORDERED: MEDICAL MARIJUANA PO PRN (13:00)
--- NOTE | 2018-06-23 13:27 | Operative Report ---
DATE OF OPERATION: 06/23/2018 PREOPERATIVE DIAGNOSES: 1. Spinal cord compression, cervical spine, C4-C5, C5-C6, and C6-C7. 2. 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 3. Degenerative disk disease and instability, C6-C7, cervical spine. PROCEDURES: 1. Removal of an anterior plate from C4-C6 of the cervical spine and 4 screws. 2. Revision strategies taking out old implants at C4-C5, C5-C6, cervical spine. This was essentially a small corpectomy. 3. Anterior cervical diskectomy at C6-C7 of the cervical spine. 4. Left iliac crest structural autograft. 5. Anterior fusion C4-C5, C5-C6, and C6-C7 with structural autograft. 6. Anterior plate from C4-C5, C5-C6, locking anterior cervical plate. 7. Interbody device cage construct from the Bundle It at C6-C7 cervical spine packed with structural autograft. SURGEON: Jeff Aguilar DO. CASE RESOLUTION SPECIALIST: Jorge Dangelo PA-C. COMPLICATIONS: Zero. DESCRIPTION OF PROCEDURE: Patient was taken to the operating room. A general intubated anesthetic provided to the patient. Kept supine on the operative table, prepped and draped sterile. We made a skin incision and fascial incision in the cervical spine. We came right down on the anterior plate. Using revision strategies, we were able to take out the prior existing plate. We then had to revise the interbodies at C4-C5 and C5-C6. I used curettes and a high speed bur. We were able to get out with relative ease the failed interbody spaces that were placed several years ago. These had definitely gone on to a nonunion radiographically and physically. We then completed an anterior cervical diskectomy getting all the way back to the uncovertebral joint, which was not violated in the past, and we were passed in through to the spinal cord, so we did a virgin decompression technique at each of these levels. We then went down to the C6-7 level of the cervical spine and did an anterior cervical decompression at this level. We then went to the left iliac crest. We placed a structural autograft at C4-C5 and C5-C6 cervical spine and an anterior plate over the construct C4-C5 and C5-C6 of cervical spine. It was by [employer] It. It was 32 mm in length, approximately 15 mm left to right. This was transfixed with 6 cervical screws. On the C6-C7 area of the cervical spine, we did an interbody cage called Coalition with the Bundle It. This was packed with autograft as well, fixed with 1 screw north, 1 screw south. The cross table x-rays at the close of the procedure were excellent. We irrigated thoroughly all soft tissues, closed in layers in the cervical spine over a Tomeka drain. The iliac crest was also irrigated and closed in layers. Sterile dressings applied throughout. Cervical collar applied. Patient extubated to PACU stable. No apparent complications. Blood loss approximately 50 mL. I attest to the content of the Intraoperative Record and any orders documented therein. Any exception s are noted below.
[2018-06-23] MEDS: SODIUM CHLORIDE 0.9% 1000ML 1,000 ML IV SCH (14:20)
[2018-06-23] MEDS: CEFAZOLIN 2000MG 2,000 MG/15 ML SYR IV SCH ×2 (14:20→21:42)
[2018-06-23] MEDS: DEXAMETHASONE SOD PHOSPHATE 6 MG in SYRINGE 0 ML IV SCH ×2 (16:28→23:29)
[2018-06-23] MEDS: ONDANSETRON INJ 2 MG/ML 2 ML VIAL IV PRN ×2 (16:28→23:29)
[2018-06-23] MEDS: TROSPIUM ~ ORDER AWAITING ACTION SCH ×2 (16:43→23:29)
[2018-06-23] MEDS: CHOLECALCIFEROL 1,000 UNITS TAB PO SCH (21:39)
[2018-06-23] MEDS: MAGNESIUM OXIDE 400 MG TAB PO SCH (21:39)
[2018-06-23] MEDS: OXYCODONE HCL IR 5 MG TAB (IMMEDIATE RELEASE) PO PRN (23:38)
[2018-06-24] MEDS: HYDROmorphone INJ 0.5 MG/0.5 ML SYR IV PRN ×2 (00:39→06:10)
[2018-06-24] MEDS: SODIUM CHLORIDE 0.9% 1000ML 1,000 ML IV SCH (00:50)
[2018-06-24] MEDS: OXYCODONE HCL IR 5 MG TAB (IMMEDIATE RELEASE) PO PRN ×2 (05:09→11:09)
[2018-06-24] MEDS: CEFAZOLIN 2000MG 2,000 MG/15 ML SYR IV SCH (05:12)
--- NOTE | 2018-06-24 08:12 | Anesthesiology Progress Note ---
Date of Service June 24, 2018 Anesthesia Post Procedure Vital Signs Vital Signs: Temp Pulse Pulse Pulse Resp BP BP 06/24/18 07:14 91 H 16 06/24/18 07:00 36.6 C 85 16 112/67 06/24/18 05:00 36.6 C 95 H 16 112/66 06/24/18 03:30 82 16 06/24/18 03:00 36.6 C 95 H 16 112/66 06/24/18 01:00 36.7 C 94 H 18 110/71 06/23/18 23:10 36.9 C 96 H 14 108/68 06/23/18 21:35 36.9 C 95 H 16 118/69 06/23/18 19:40 36.7 C 96 H 112/74 06/23/18 19:34 103 H 16 06/23/18 17:25 36.8 C 96 H 16 123/81 06/23/18 16:15 06/23/18 15:29 91 H 16 06/23/18 15:10 36.8 C 91 H 18 113/75 06/23/18 14:10 36.9 C 93 H 16 108/72 06/23/18 13:10 84 18 115/66 06/23/18 12:50 88 22 06/23/18 12:40 36.6 C 84 16 112/75 06/23/18 12:10 36.8 C 90 16 118/73 06/23/18 11:55 36.9 C 79 16 119/74 06/23/18 11:45 36.9 C 80 14 115/75 06/23/18 11:35 36.9 C 81 14 124/72 06/23/18 11:25 78 16 125/80 06/23/18 11:15 84 16 137/72 06/23/18 11:05 78 13 119/76 06/23/18 10:55 93 H 17 126/79 06/23/18 10:46 36.6 C 89 16 120/80 Pulse Ox Pulse Ox 06/24/18 07:14 94 06/24/18 07:00 94 06/24/18 05:00 95 06/24/18 03:30 93 06/24/18 03:00 95 06/24/18 01:00 93 06/23/18 23:10 97 06/23/18 21:35 97 06/23/18 19:40 93 06/23/18 19:34 95 06/23/18 17:25 98 06/23/18 16:15 98 06/23/18 15:29 98 06/23/18 15:10 95 06/23/18 14:10 96 06/23/18 13:10 97 06/23/18 12:50 98 06/23/18 12:40 97 06/23/18 12:10 98 06/23/18 11:55 95 06/23/18 11:45 96 06/23/18 11:35 97 06/23/18 11:25 95 06/23/18 11:15 97 06/23/18 11:05 95 06/23/18 10:55 98 06/23/18 10:46 96 Pain Intensity Medial Back: Pain Intensity: 0 Medial Neck: Pain Intensity: 5 Left Hip: Pain Intensity: 0 Notes Mental Status: alert / awake / arousable and participated in evaluation Patient Amnestic to Procedure: Yes Nausea / Vomiting: adequately controlled Pain: adequately controlled Airway Patency, RR, SpO2: stable & adequate BP & HR: stable & adequate Hydration State: stable & adequate Anesthetic Complications: no major complications apparent
[2018-06-24] MEDS: TROSPIUM ~ ORDER AWAITING ACTION SCH (08:58)
[2018-06-24] MEDS: CHOLECALCIFEROL 1,000 UNITS TAB PO SCH (08:58)
[2018-06-24] MEDS: DEXAMETHASONE SOD PHOSPHATE 6 MG in SYRINGE 0 ML IV SCH (08:58)
[2018-06-24] MEDS: MAGNESIUM OXIDE 400 MG TAB PO SCH (08:59)
[2018-06-24] MEDS ORDERED: TURMERIC ROOT EXTRACT 500 MG PO SCH (09:00)
[2018-06-24] MEDS ORDERED: CYANOCOBALAMIN (VITAMIN B-12) 2,500 MCG TAB.SUBL SL SCH (09:00)
[2018-06-24] MEDS ORDERED: VITAMIN A PO SCH (09:00)
[2018-06-24] MEDS ORDERED: NON-FORMULARY MEDICATION (Potassium [Potassium] 99 MG) PO SCH (09:00)
--- NOTE | 2018-06-24 10:14 | Discharge Summary ---
Xuan was admitted for reconstruction of the cervical spine surgery. She has done well short run. She is about a day out, improved, stable, minimal complaints of pain, alert, oriented, taking p.o., ambulatory. Again, uneventful operative course and postoperative course. She will be discharged home later today. She has instructions, precautions, dressings were changed, a prescription on her chart, and a followup appointment made.
[2018-06-25] MEDS ORDERED: LR 15ML/HR IV SCH (06:00)
== END 2018-06-24 12:24 | disposition home or self-care (01) | DRG 472 ==
LOC: ASU 05:34 → 3E 10:54

== ENCOUNTER 2018-12-18 06:17 | Observation (INO) ==
--- NOTE | 2018-12-10 15:09 | Anesthesiology Consultation ---
Date of Service December 10, 2018 History Surgery Operation Date: 12/18/18 09:10 Proposed Procedures p L4-L5, L5-S1 Laminectomy and Fusion - Jeff Aguilar DO Height/Weight Height: 5 ft 6 in Weight: 70.307 kg Allergies Allergy/AdvReac Type Severity Reaction Status Date / Time No Known Allergies Allergy Verified 12/10/18 11:08 Medications Home Medications Medication Instructions Recorded Confirmed Last Taken rizatriptan 10 mg PO UD PRN 03/03/18 12/10/18 12/09/18 ranitidine HCl [Zantac] 150 mg PO BID PRN 03/05/18 12/10/18 06/23/18 04:00 promethazine 25 mg PO Q6H PRN 06/10/18 12/10/18 12/09/18 sumatriptan succinate [Imitrex 1 dose SUBCUT 06/10/18 12/10/18 Unknown STATdose Pen] Cbd Oil 1 dose PO TID 12/10/18 12/10/18 Unknown Marijuana 1 dose INHALATION UD 12/10/18 12/10/18 Unknown Rso Oil 1 dose PO TID 12/10/18 12/10/18 Unknown Past Medical History Medical History History of difficult intubation C4-C7 revision ACDF with iliac crest: Grade 1 view with glidescope# 3.0, ETT 7.0 at [facility] Fibromyalgia IBS (irritable bowel syndrome) Osteoarthritis Spinal stenosis GERD (gastroesophageal reflux disease) Anxiety disorder ADD (attention deficit disorder) Chronic back pain NECK AND BACK; UE/LE RADICULOPATHY Depression Diverticular disease IBS (irritable bowel syndrome) Temporomandibular joint disorder NO LOCKING Past Family History Family History Mother Family history of diabetes mellitus Grandfather (Paternal) Family hx of colon cancer Other No pertinent family history Past Surgical History Surgical History History of cervical spinal surgery C4-C7 revision ACDF with iliac crest: Grade 1 view with glidescope# 3.0, ETT 7.0 at [facility] History of section History of rhinoplasty H/O: hysterectomy + RIGHT OOPHORECTOMY= 01/14/18= GRADE VIEW 1, MAC 3, ETT 7.0 AT [facility] Social History Smoking Status: Former smoker tobacco type: cigarettes Smoking cigarettes per day: 10 Do You Dip or Chew Tobacco: No Smoking End Date: QUIT 04/2018 Hx Alcohol Use: No Hx Substance Use: Yes substance use type: marijuana and other Substance Use Type Other:: VAPES WITH MARIJUANA DAILY/CBD OIL 3 X A DAY/RSO OIL 2-3 X A DAY Last Used Substance Other:: WILL BRING MEDICAL MARIJUANA CARD/AWARE OF LOCK BOX SYSTEM AT HOSP Testing Laboratory Results 12/10/18 WBC 11.2 H/H 14.6/41.8 PLATELETS 305 SODIUM 138 POTASSIUM 3.6 CHLORIDE 107 CO2 23 BUN 14 CREATININE 0.79 GLUCOSE 96 Chest X-Ray Date: 06/09/18 Findings: + NAD
--- NOTE | 2018-12-17 11:11 | History and Physical Report ---
DATE OF ADMISSION: 12/18/2018 CHIEF COMPLAINT: Back pain, lower extremity difficulty, paresthesias instability type symptoms. HISTORY OF PRESENT ILLNESS: Xuan is delightful. I have known her for several years. We did operate on her cervical spine a half year ago. She had nice recovery. She has significant degenerative changes of the spine, particularly L4-L5 and L5-S1 disc space collapse and foraminal stenosis. PAST MEDICAL HISTORY: Migraines, sinusitis, arthritis. No diabetes, heart disease, anxiety or depression or COPD. No cancer history. PAST SURGICAL HISTORY: x1, nose reconstruction, cervical spine surgery x2. ALLERGIES: Negative. FAMILY HISTORY: Heart disease, diabetes. SOCIAL HISTORY: . No children. No alcohol. Former cigarette smoker; has ceased smoking. REVIEW OF SYSTEMS: Twelve system review denies any fevers, sweats, chills, weight loss or gain. Denies any chest pain, palpitation, shortness of breath. She denies nausea, vomiting, urgency, frequency, dysuria. She has back pain, lower extremity difficulty, paresthesias, numbness and tingling. MEDICATIONS: Lyrica, Paxil, Celebrex, Claritin and Nucynta. Her major complaint is her back and lower extremity difficulty as described in history of present illness. PHYSICAL EXAMINATION: GENERAL: She is 5 feet 6 inches. She is 180. She is alert, oriented. She has pretty significant back and lower extremity difficulty. VITAL SIGNS: Blood pressure 130/80, pulse 80, respiratory rate 16, afebrile. HEENT: Essentially normal. Pupils react to light and accommodation. CARDIAC: Normal S1, S2, no S3. LUNGS: Clear to auscultation. ABDOMEN: Soft and nontender. MUSCULOSKELETAL: She has 5/5 motor strength. She has some weakness with dorsiflexion and plantarflexion. She has slight gait abnormality. She has decreased range of motion, pain with percussion. X-rays demonstrate severe degenerative changes L4-5 and 5-S1 lumbar spine. PLAN: Includes a laminectomy and fusion L4-S1 lumbar spine.
[~2018-12-18 06:17] MED LIST changes: -ASCO10003 PO; +CEFAZOLIN 2000MG 2,000 MG/15 ML SYR IV SCH; -CEFOXITIN IV 2,000 MG in DEXTROSE 5% 50ML 50 ML IV SCH; -CHOL1000 PO; -CLB/200 PO; -LACT1CAP6 PO; -LACTATED RINGER'S 1000ML 1,000 ML IV SCH; -LACTATED RINGER'S 1000ML 500 ML IV SCH; -LORA10CA2 PO; +LR 15ML/HR IV SCH; -MAGN400T6 PO; -MEDMARIJ PO; -METH20TA66 PO; -PREG150C PO; -PROM25TA16 PO; -RIZA10TA18 PO; +SODIUM CHLORIDE 0.9% 1000ML IV SCH; -SUMA6KIT2 INJ; -TOPI200T14 PO; -ZNT/150 PO
[2018-12-18] MEDS ORDERED: MIDAZOLAM HCL 1 MG/ML 2ML VIAL ONE (06:55)
[2018-12-18] MEDS ORDERED: NEOSTIGMINE METHYLSULFATE 5 MG/5 ML SYR ONE (06:55)
[2018-12-18] MEDS ORDERED: GLYCOPYRROLATE 0.2 MG/ML VIAL ONE (06:55)
[2018-12-18] MEDS ORDERED: PROPOFOL IV EMULSION 10 MG/ML 20 ML VIAL IV ONE (06:55)
[2018-12-18] MEDS ORDERED: LIDOCAINE HCL 2% 2 ML VIAL/AMP(20MG/ML) INFIL ONE (06:55)
[2018-12-18] MEDS ORDERED: ROCURONIUM BROMIDE 10 MG/ML 5 ML VIAL ONE (06:55)
[2018-12-18] MEDS ORDERED: HYDROmorphone INJ 2 MG/ML SYR/VIAL ONE ×2 (06:56→10:24)
[2018-12-18] MEDS ORDERED: BACITRACIN INJ 50,000 UNIT VIAL ONE ×2 (07:44→07:47)
[2018-12-18] MEDS ORDERED: VANCOMYCIN HCL 1000MG/20ML VIAL ONE (07:44)
[2018-12-18] MEDS ORDERED: THROMBIN FOR SOLN 20000 UNIT KIT ONE (07:44)
[2018-12-18] MEDS ORDERED: BUPIVACAINE/EPINEPHRINE 0.5% MPF 1:200,000 30 ML VIAL ONE ×2 (07:44→08:29)
[2018-12-18] MEDS ORDERED: GELATIN SPONGE SZ 100 ONE (07:44)
[2018-12-18] MEDS ORDERED: ATROPINE SULFATE 0.1 MG/ML 10ML SYR IV PRN (07:58)
[2018-12-18] MEDS ORDERED: ePHEDrine sulfate 50 MG/ML AMP IV PRN (07:58)
--- NOTE | 2018-12-18 08:21 | History & Physical Bridge Note ---
Date of Service December 18, 2018 History & Physical Bridge Note I have examined the patient, reviewed the History & Physical and in the interval since the performance of the History & Physical I have noted the following changes of clinical significance: no changes noted
--- NOTE | 2018-12-18 11:23 | Post Operative Brief Note ---
Immediate Post Op Note v1 Date of Surgery December 18, 2018 Pre & Post Diagnosis Operation Date: 12/18/18 08:15 Pre-Op Diagnosis: L4-L5 and L5-S1 disc space collapse and foraminal stenosis. Post-Op Diagnosis: L4-L5 and L5-S1 disc space collapse and foraminal stenosis. Procedure Operation Date: 12/18/18 08:15 Actual Procedures p L4-L5, L5-S1 Laminectomy and Fusion, Interbody Fusion L4-L5, L5-S1, Application of DBM Putty(Not Applicable) - Jeff Aguilar DO Surgeon Jeff Aguilar DO Manager Strategy & Account susu Estimated Blood Loss 200 Findings Consistent with Post-Op Diagnosis Drains Regalado Catheter (16f regalado catheter inserted by NOLVIA Dangelo, sterile techniuque maintained, hospital policy and procedure followed) and Hemovac Drain Complications none Overlapping Procedure I was immediately available: during the entire case.
[2018-12-18] MEDS: fentaNYL citrate 100 MCG/2 ML VIAL IV PRN ×4 (11:34→11:49)
[2018-12-18] MEDS: HYDROmorphone INJ 2 MG/ML SYR/VIAL IV PRN ×4 (11:54→12:09)
--- NOTE | 2018-12-18 12:23 | Anesthesiology Progress Note ---
Date of Service December 18, 2018 Anesthesia Post Procedure Vital Signs Vital Signs: Temp Pulse Pulse Resp BP Pulse Ox 12/18/18 12:15 36.6 C 77 18 121/67 97 12/18/18 12:05 68 18 139/78 100 12/18/18 11:55 76 18 131/72 100 12/18/18 11:45 83 18 152/80 H 100 12/18/18 11:35 96 H 18 152/95 H 100 12/18/18 11:27 37.0 C 104 H 18 156/94 H 100 12/18/18 06:49 36.4 C L 72 18 120/55 L 97 Pain Intensity Lower Back: Pain Intensity: 9 Transfer of Care Handoff Completed per policy Notes Mental Status: alert / awake / arousable and participated in evaluation Patient Amnestic to Procedure: Yes Nausea / Vomiting: adequately controlled Pain: adequately controlled Airway Patency, RR, SpO2: stable & adequate BP & HR: stable & adequate Hydration State: stable & adequate Anesthetic Complications: no major complications apparent
--- NOTE | 2018-12-18 12:48 | Fluoroscopy Report ---
FL spine 1V any level CLINICAL HISTORY: 43 years-old Female presenting with LAMI L4-L5 L5-S1. TECHNIQUE: 1 fluoroscopic image(s) recorded as part of an intraoperative procedure. COMPARISON: MR from 12/10/2018. FINDINGS/IMPRESSION: Surgical instrumentation projects over the lumbar region. There has been placement of bilateral trans pedicular screw and estee fixation in L4-S1 with interbody spacers at L4-5 and L5-S1. Normal anatomic a lignment. Please see surgical report for further details. Fluoroscopy dosage (mGy): 6.29. Fluoroscopy time: 12.1 seconds. Number or time of high level fluoroscopy (HLF), digital spot, or digital subtraction images: 0. Electronically signed by: Kike Rosario M.D. 12/18/2018 12:46 PM
[2018-12-18] MEDS ORDERED: PROMETHAZINE HCL 25 MG TAB PO PRN (13:08)
[2018-12-18] MEDS ORDERED: SUMAtriptan succinate 6 MG/0.5 ML VIAL SQ PRN (13:08)
[2018-12-18] MEDS ORDERED: RIZATRIPTAN BENZOATE 10 MG TAB PO PRN (13:08)
[2018-12-18] MEDS ORDERED: HYDROmorphone INJ 0.5 MG/0.5 ML SYR IV PRN (13:08)
[2018-12-18] MEDS ORDERED: ACETAMINOPHEN 1,000 MG/100 ML VIAL IV PRN (13:08)
[2018-12-18] MEDS ORDERED: ONDANSETRON INJ 2 MG/ML 2 ML VIAL IV PRN (13:08)
[2018-12-18] MEDS ORDERED: SOD PHOSPHATE/SOD BIPHOSPHATE ENEMA 132 ML BTL PR PRN (13:08)
[2018-12-18] MEDS ORDERED: MAGNESIUM HYDROXIDE SUSP 30 ML UDC PO PRN (13:08)
[2018-12-18] MEDS ORDERED: BISACODYL 10 MG SUPP PR PRN (13:08)
[2018-12-18] MEDS: SODIUM CHLORIDE 0.9% 1000ML 1,000 ML IV SCH (13:18)
[2018-12-18] MEDS: OXYCODONE HCL IR 5 MG TAB (IMMEDIATE RELEASE) PO PRN ×3 (13:38→23:46)
[2018-12-18] MEDS: CEFAZOLIN 2000MG 2,000 MG/15 ML SYR IV SCH ×2 (15:57→23:43)
[2018-12-18] MEDS: LORazepam 0.5 MG/1 ML VIAL IV PRN (16:23)
[2018-12-18] MEDS ORDERED: HYDROmorphone INJ 2 MG/ML SYR/VIAL IV STA (16:41)
[2018-12-18] MEDS ORDERED: KETOROLAC 30 MG/ML VIAL IV STA (16:45)
--- NOTE | 2018-12-18 20:27 | Operative Report ---
DATE OF OPERATION: 12/18/2018 PREOPERATIVE DIAGNOSIS: Two-level degenerative disc disease L4-L5, L5-S1 lumbar spine. POSTOPERATIVE DIAGNOSIS: Two-level degenerative disc disease L4-L5, L5-S1 lumbar spine. PROCEDURES: 1. Decompression laminectomy and decompression of nerve roots, foraminotomy, partial facetectomy L4-L5, L5-S1. 2. Pedicle screw instrumentation L4-L5 and L5-S1. 3. Posterior lumbar interbody fusion L4-L5 and L5-S1. 4. Lastly a posterolateral fusion L4-L5 and L5-S1. SURGEON: Jeff Aguilar DO. [employer] CONTRACTOR: Jorge Dangelo PA-C. COMPLICATIONS: Zero. BLOOD LOSS: 200 mL DESCRIPTION OF PROCEDURE: The patient was taken to the operating room, a general intubated anesthetic provided to the patient, placed prone on the Emile table. Scrubbed, prepped, draped sterile. A skin incision, fascial incision, carefully got down to the lamina, facet joints, and over the transverse processes putting a deep self-retaining retractor. We decompressed the neural elements. I was very happy with the decompression at L5-S1, L4-5. We did a complete laminectomy of all these levels. We safely got pedicle screws into sacrum 5-4 on the right and sacrum 5-4 on the left hand side. We used anatomic guideline and C-arm guidance as well for anatomic positioning of the pedicle screws. There was no apparent nerve injury. We then dissected and did a discectomy L5-S1, L4-L5 off the left hand side, putting interbody device placed by the [employer] into the discectomy sites. This was packed with autograft. We then locked down the construct. The final images were essentially anatomic with very pleased with the orientation, placement of screws and interbody devices. The construct was locked down thoroughly. We irrigated thoroughly. We then bone grafted out of the transverse processes. We placed Gelfoam over the dural structures, placed a Hemovac drain. We also placed vancomycin powder. We closed with 1 Vicryl suture, 2-0 and 3-0 nylon on the skin. The sterile dressing was applied. Prior to taking the patient back to the operating room we saw her in the holding area. She was properly identified. We took a formal timeout. IMPLANTS USED: By the [employer] which was 6 pedicle screws 2 rods and 2 interbody devices. Bone graft used was combination of autograft and demineralized bone matrix. Sponge and needle count correct at the close. There were no complications. I attest to the content of the Intraoperative Record and any orders documented therein. Any exception s are noted below.
[2018-12-18] MEDS: DOCUSATE SODIUM/SENNA 50/8.6MG TAB PO SCH (21:16)
[2018-12-18] MEDS: KETOROLAC 30 MG/ML VIAL IV SCH (21:16)
[2018-12-18] MEDS: HYDROmorphone INJ 0.5 MG/0.5 ML SYR IV PRN (21:22)
[2018-12-19] MEDS: SODIUM CHLORIDE 0.9% 1000ML 1,000 ML IV SCH (02:38)
[2018-12-19] MEDS: KETOROLAC 30 MG/ML VIAL IV SCH ×3 (04:00→15:23)
[2018-12-19] MEDS: OXYCODONE HCL IR 5 MG TAB (IMMEDIATE RELEASE) PO PRN ×3 (04:01→19:04)
--- NOTE | 2018-12-19 09:09 | Anesthesiology Progress Note ---
Date of Service December 19, 2018 Anesthesia Post Procedure Vital Signs Vital Signs: Temp Pulse Pulse Resp BP Pulse Ox 12/19/18 07:25 37.4 C 72 16 91/49 L 97 12/19/18 04:04 116/63 12/19/18 02:33 37.1 C 65 14 93/51 L 98 12/18/18 23:47 98/67 L 12/18/18 23:09 37.3 C 73 14 98/59 L 98 12/18/18 19:19 36.5 C 76 15 122/79 99 12/18/18 16:52 36.4 C L 74 16 112/68 99 12/18/18 14:56 36.4 C L 74 17 107/67 95 12/18/18 13:55 86 18 99 12/18/18 13:22 72 19 125/79 98 12/18/18 13:09 36.8 C 65 16 129/83 99 12/18/18 12:35 79 18 124/72 100 12/18/18 12:25 36.6 C 72 18 118/68 100 12/18/18 12:15 36.6 C 77 18 121/67 97 12/18/18 12:05 68 18 139/78 100 12/18/18 11:55 76 18 131/72 100 12/18/18 11:45 83 18 152/80 H 100 12/18/18 11:35 96 H 18 152/95 H 100 12/18/18 11:27 37.0 C 104 H 18 156/94 H 100 Notes Mental Status: alert / awake / arousable and participated in evaluation Nausea / Vomiting: adequately controlled Pain: adequately controlled Airway Patency, RR, SpO2: stable & adequate BP & HR: stable & adequate Hydration State: stable & adequate
[2018-12-19] MEDS: HYDROmorphone INJ 0.5 MG/0.5 ML SYR IV PRN ×2 (13:18→22:35)
[2018-12-19] MEDS: DOCUSATE SODIUM/SENNA 50/8.6MG TAB PO SCH (20:54)
[2018-12-19] MEDS: LORazepam 0.5 MG/1 ML VIAL IV PRN (21:38)
[2018-12-20] MEDS: OXYCODONE HCL IR 5 MG TAB (IMMEDIATE RELEASE) PO PRN ×2 (01:56→11:23)
--- NOTE | 2018-12-20 18:10 | Discharge Summary ---
Xuan is alert and oriented this morning, 12/20. No consequences. She has had an uneventful stay. Pain controlled. No chest pain or shortness of breath, no extremity difficulties. No incontinence or retention. She is alert, oriented. Denies chest pain or shortness of breath. She will be discharged home later this morning. She has instructions from the office, instructions from here. Dressing has been changed. Medications on her chart.
== END 2018-12-20 11:39 | disposition home or self-care (01) ==
LOC: 3E 06:17 → ASU 06:17